=== PATIENT | female | born 1985 | race Caucasian/White ===

== ENCOUNTER 2017-03-23 09:15 | Day surgery (SDC) | payer OTHER ==
[2017-03-21 16:50] VITALS: BMI 22.2
[~2017-03-23 09:15] MED LIST: LACTATED RINGERS 1,000 ML IV SCH
[2017-03-23 09:46] VITALS: TEMP 98.4
[2017-03-23] MEDS ORDERED: PROPOFOL 10 MG/ML 20 ML VIAL IV ONE (10:07)
[2017-03-23 10:09] LABS: Glucose,Whole Blood 92 mg/dL (75-99)
[2017-03-23 10:40] VITALS: RESP 16
--- NOTE | 2017-03-23 10:53 | P.PCN ---
Date of Procedure: 03/23/17 Preoperative Diagnosis: Postoperative Diagnosis: Procedure(s) Performed: Procedures: 1. Esophagogastroduodenoscopy and biopsy. 2. Colonoscopy and biopsy. Preoperative diagnosis: Epigastric pain and change in bowel habits. Postoperative diagnosis: 1. Small sliding hiatal hernia with no obvious esophagitis or complaints reflux disease. 2. Mild antral gastritis. 3. Normal colon and terminal ileum. 4. Multiple biopsies obtained from the duodenum, antrum, esophagus, terminal ileum and right colon. Preparation: HalfLytely prep. Sedation: Was provided by anesthesia. Brief clinical history: The patient is a 32-year-old female who was evaluated in the office for epigastric pain and diarrhea that she has been experiencing since May of last year. She had slight improvement on a gluten-free diet which she followed for 2 months. She has lost 30 pounds over 6 months period. This evaluation is to rule out inflammatory bowel disease, celiac disease or other pathology. Procedure: With the patient on her left lateral decubitus position and after informed consent and adequate sedation, I passed the Olympus-GIF 160 video upper endoscope through the cricopharyngeus down the esophagus. GE junction was around 38 cm from the incisors and there was a small sliding hiatal hernia. The esophagus did not show any erosions, ulcers, strictures or Skelton's esophagus. The endoscope was then passed into the stomach which was insufflated with air and inspected in the retroflex view in the cardia. There was some mottling and erythema in the antrum but no ulcers or erosions. Pyloric channel, duodenal bulb, post bulbar area and descending duodenum appeared within normal limits. I obtained biopsies from the duodenum, antrum and esophagus then the endoscope was withdrawn and I proceeded with the colonoscopy. Perianal area did not show any fissures or fistulas. There were no masses felt on digital rectal examination. The Olympus CFQ 160L video colonoscope was then inserted in the rectum in the usual fashion and advanced to the cecum. I intubated the ileocecal valve and examined the terminal ileum as well. Terminal ileum and colon appeared healthy with no edema, erythema, friability, ulceration, exudation or spontaneous bleeding. I obtained biopsies from the terminal ileum and right colon then the endoscope was retroflexed in the rectum before it was withdrawn. The patient tolerated the procedure well. Plan: The patient was reassured. She will follow-up in the office as planned. We will await biopsy results and keep you updated on her progress. Implants: Indications for Procedure: Operative Findings: Description of Procedure:
[2017-03-23 11:11] VITALS: BP 102/72; PULSE 75
== END 2017-03-23 11:30 | disposition home or self-care (01) ==
LOC: ORWHC2ENDO 09:15
DX: K29.50 Unspecified chronic gastritis without bleeding (principal); K20.9 Esophagitis, unspecified; K44.9 Diaphragmatic hernia without obstruction or gangrene; R19.4 Change in bowel habit; R19.7 Diarrhea, unspecified; R63.4 Abnormal weight loss; I25.10 Atherosclerotic heart disease of native coronary artery without angina pectoris; F43.10 Post-traumatic stress disorder, unspecified; F41.8 Other specified anxiety disorders; J44.9 Chronic obstructive pulmonary disease, unspecified; F17.200 Nicotine dependence, unspecified, uncomplicated; Z79.899 Other long term (current) drug therapy
CPT/HCPCS: 88305; 88342; 45380; 43239; J2704; 45378

== ENCOUNTER → 2017-04-20 | Outpatient (CLI) | payer OTHER ==
--- NOTE | 2017-04-20 11:52 | US ---
EXAMINATION TYPE: US abdomen complete DATE OF EXAM: 04/20/2017 COMPARISON: NONE CLINICAL HISTORY: R10.9 Abd pain. EXAM MEASUREMENTS: Liver Length: 13.8 cm Gallbladder Wall: Surgically absent cm CBD: 0.31 cm Spleen: 11.3 cm Right Kidney: 8.7 x 3.9 x 4.6 cm Left Kidney: 11.0 x 4.8 x 4.8 cm Pancreas: echogenic Liver: wnl Gallbladder: Surgically absent CBD: wnl Spleen: wnl Right Kidney: No hydronephrosis or masses seen Left Kidney: No hydronephrosis or masses seen Upper IVC: wnl Abd Aorta: wnl Pancreas appears echogenic The liver is homogenous. The intrahepatic portion of the IVC and proximal abdominal aorta are within normal limits. The gallbladder is surgically absent. Common bile duct is unremarkable. The visualiz ed portions of the pancreas are homogenous. The spleen is unremarkable. Kidneys are symmetric and f ree of hydronephrosis. No renal lesions are seen. IMPRESSION: No significant abnormality identified.
== END | disposition home or self-care (01) ==
LOC: RADUSWWP 11:08
DX: R10.9 Unspecified abdominal pain (principal)
CPT/HCPCS: 76700

== ENCOUNTER 2017-06-05 21:37 | Emergency (ER) | payer OTHER ==
[2017-06-05] MEDS ORDERED: SODIUM CHLORIDE 0.9% 1,000 ML IV ONE (22:54)
[2017-06-05 23:43] LABS: Basophils % (A) 0 %; CHCM 34.8; Eosinophils # (A) 0.3 k/uL (0-0.7); Eosinophils % (A) 1 %; HCT 42.9 % (34.0-46.0); HGB 14.9 gm/dL (11.4-16.0); Luc # (Auto) 0.07; Luc % (Auto) 0; Lymphocytes # (A) 1.2 k/uL (1.0-4.8); Lymphocytes % (A) 5 %; MCHC 34.6 g/dL (31.0-37.0); MCV 89.5 fL (80.0-100.0); Mean Platelet Volume 6.7; Monocytes # (A) 0.4 k/uL (0-1.0); Monocytes % (A) 2 %; Neutrophils # (A) 21.4 k/uL (1.3-7.7); Neutrophils % (A) 91 %; RDW 12.3 % (11.5-15.5); WBC 23.5 k/uL (3.8-10.6); WBC (Perox) 24.19
[2017-06-05 23:45] LABS: Appearance,Urine Clear (Clear); Bilirubin,Urine Negative (Negative); Glucose,Urine (UA) Negative (Negative); Ketones,Urine Negative (Negative); Leukocyte Esterase,Urine Negative (Negative); Nitrite,Urine Negative (Negative); Protein,Urine Trace (Negative); Specific Gravity,Urine 1.015 (1.001-1.035); UA Billing (MACRO vs. MICRO) CHEM; Urobilinogen,Urine <2.0 mg/dL (<2.0)
[2017-06-05 23:52] LABS: Acetaminophen <10.0 ug/mL; Alcohol <10 mg/dL; Salicylate <1.0 mg/dL
[2017-06-06 00:57] LABS: ALT 43 U/L (9-52); AST 32 U/L (14-36); Alkaline Phosphatase 79 U/L (38-126); Anion Gap 14 mmol/L; Blood Urea Nitrogen 9 mg/dL (7-17); Calcium 9.6 mg/dL (8.4-10.2); Carbon Dioxide 23 mmol/L (22-30); Chloride 104 mmol/L (98-107); Glucose 95 mg/dL (74-99); Non-African American GFR(MDRD) >60 (>60 ml/min/1.73 sqM); Potassium 3.5 mmol/L (3.5-5.1); Sodium 141 mmol/L (137-145); Total Bilirubin 0.5 mg/dL (0.2-1.3); Total Protein 7.2 g/dL (6.3-8.2)
--- NOTE | 2017-06-06 01:25 | XR ---
EXAM: XR Chest, 2 Views CLINICAL HISTORY: Reason: Pain TECHNIQUE: Frontal and lateral views of the chest. COMPARISON: 03/16/16 FINDINGS: Lungs: Unremarkable. No consolidation. Pleural space: Unremarkable. No pneumothorax. Heart: Unremarkable. No cardiomegaly. Mediastinum: Unremarkable. Bones/joints: Unremarkable. IMPRESSION: Normal chest x-rays.
--- NOTE | 2017-06-06 01:51 | ED ---
General Adult HPI - General Source: patient, family, RN notes reviewed, old records reviewed Mode of arrival: ambulatory Limitations: no limitations <Alberto George - Last Filed: 06/06/17 05:00> <Scooby Ceja - Last Filed: 06/06/17 17:27> - General Chief complaint: Psychiatric Symptoms Stated complaint: Mental Health Time Seen by Provider: 06/05/17 22:53 - History of Present Illness Initial comments: 32-year-old female with history of depression presents with a one-month history of worsening symptoms of depression. She recently broke up with her boyfriend. She's had suicidal thoughts and plans over the last several days. She even admits to taking too much of her prescription medication several days ago. She denies taking any medication today. Denies alcohol. Denies Tylenol or aspirin ingestion today. Patient has had multiple admissions for psychiatric treatment and evaluation in the past. (Alberto George) - Related Data Home Medications Medication Instructions Recorded Confirmed Cyclobenzaprine [Flexeril] 10 mg PO TID PRN 07/13/15 06/06/17 Montelukast [Singulair] 10 mg PO HS PRN 10/28/15 06/06/17 LORazepam [Ativan] 0.5 mg PO TID PRN 12/24/15 06/06/17 lamoTRIgine [LaMICtal] 200 mg PO QAM 03/16/16 06/06/17 Hydrocodone/Acetaminophen [[place] 1 tab PO TID PRN 04/23/16 06/06/17 7.5-325] Topiramate [Topamax] 50 mg PO QAM 04/23/16 06/06/17 Albuterol Nebulized (Conc) 2.5 mg INHALATION DAILY PRN 03/21/17 06/06/17 [Ventolin Nebulized (Conc)] Escitalopram [Lexapro] 20 mg PO QAM 03/21/17 06/06/17 Multivit with Calcium,Iron,Min 1 tab PO DAILY 03/21/17 06/06/17 [Women's Multivitamin] Zinc 50 mg PO DAILY 03/21/17 06/06/17 Cholecalciferol (Vitamin D3) 2,000 unit PO DAILY 03/23/17 06/06/17 [Vitamin D3] Dicyclomine HCl 20 mg PO TID PRN 06/06/17 06/06/17 Zolpidem [Ambien] 10 mg PO HS PRN 06/06/17 06/06/17 Previous Rx's Medication Instructions Recorded Albuterol Inhaler [Ventolin Hfa 1 - 2 puff INHALATION Q6HR PRN #1 03/16/16 Inhaler] inhaler Ipratropium/Albuterol Sulfate 2 puff INHALATION QID PRN #1 03/16/16 [Combivent Respimat Inhaler] inhaler Allergies Allergy/AdvReac Type Severity Reaction Status Date / Time No Known Allergies Allergy Verified 06/06/17 08:02 Review of Systems ROS Other: All systems not noted in ROS Statement are negative. <Alberto George - Last Filed: 06/06/17 05:00> ROS Other: All systems not noted in ROS Statement are negative. <Scooby Ceja - Last Filed: 06/06/17 17:27> ROS Statement: Those systems with pertinent positive or pertinent negative responses have been documented in the HPI. 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 Past Psychological History: Anxiety, Depression, Panic Disorder, PTSD Smoking Status: Current every day smoker - Past Family History Mother Family Medical History: Diabetes Mellitus, Hypertension Father Additional Family Medical History / Comment(s): had physical and mental disabilities at age 46. Father Brother(s) Family Medical History: Diabetes Mellitus, Hypertension <Alberto George - Last Filed: 06/06/17 05:00> General Exam Limitations: no limitations General appearance: alert, in no apparent distress Head exam: Present: atraumatic, normocephalic Eye exam: Present: normal appearance, PERRL ENT exam: Present: normal exam Neck exam: Present: normal inspection. Absent: tenderness, meningismus Respiratory exam: Present: normal lung sounds bilaterally. Absent: respiratory distress, wheezes, rales Cardiovascular Exam: Present: regular rate. Absent: normal rhythm GI/Abdominal exam: Present: soft. Absent: distended, tenderness, guarding Extremities exam: Present: normal inspection, full ROM. Absent: tenderness Back exam: Present: normal inspection, full ROM. Absent: CVA tenderness (R), CVA tenderness (L) Neurological exam: Present: alert, oriented X3, CN II-XII intact. Absent: motor sensory deficit Psychiatric exam: Present: depressed. Absent: agitated Skin exam: Present: warm, dry, intact. Absent: rash, cyanosis, diaphoretic <Alberto George - Last Filed: 06/06/17 05:00> EKG Findings - EKG Comments: EKG Findings:: EKG shows sinus tachycardia with ventricular rate of 12, normal MT interval at 152, QRS duration 86, QTC 450, no signs of ischemia <Alberto George - Last Filed: 06/06/17 05:00> Medical Decision Making - Lab Data Result diagrams: 06/05/17 23:32 06/05/17 23:52 <Alberto George - Last Filed: 06/06/17 05:00> - Lab Data Result diagrams: 06/05/17 23:32 06/05/17 23:52 <Scooby Ceja - Last Filed: 06/06/17 17:27> - Medical Decision Making 32-year-old female presenting with suicidal ideation and attempt. Patient attempted suicide several days ago by taking too much of her prescription medications. She denies any ingestion today. Laboratory studies were obtained. CMP is unremarkable. CBC does show elevated white blood cell count, urinalysis is negative for signs of infection, Tylenol salicylate levels are nondetectable, urine drug screen does show marijuana, benzodiazepines, tricyclics and opiates. White blood cell count is 23,000, there is no obvious source of infection on physical exam. Chest x-ray is obtained which is negative for pneumonia. Patient's white blood cell count is likely reactive. Will monitor for fever and signs of infection. EKG obtained given the history of ingestion. There is no acute changes noted. Patient is currently medically cleared awaiting EPS evaluation. 06/06 [id number]: Patient was evaluated by EPS, does require inpatient psychiatric treatment for depression and suicidal ideation. She is currently awaiting transfer to [facility] or will be admitted to this hospital when a bed is available. (Alberto George) Patient was reevaluated by EPS and [facility]. They're going to set the patient up with a mobile crisis unit and follow-up with her daily for the next few days. They're going to establish follow-up for her through [facility] as well. The patient is agreeable to this plan. Patient will be discharged with the mobile crisis unit. (Scooby Ceja) - Lab Data Lab Results 06/05/17 06/05/17 06/05/17 Range/Units 23:32 23:32 23:32 WBC 23.5 H (3.8-10.6) k/uL RBC 4.80 (3.80-5.40) m/uL Hgb 14.9 (11.4-16.0) gm/dL Hct 42.9 (34.0-46.0) % MCV 89.5 (80.0-100.0) fL MCH 31.0 (25.0-35.0) pg MCHC 34.6 (31.0-37.0) g/dL RDW 12.3 (11.5-15.5) % Plt Count 254 (150-450) k/uL Neutrophils % 91 % Lymphocytes % 5 % Monocytes % 2 % Eosinophils % 1 % Basophils % 0 % Neutrophils # 21.4 H (1.3-7.7) k/uL Lymphocytes # 1.2 (1.0-4.8) k/uL Monocytes # 0.4 (0-1.0) k/uL Eosinophils # 0.3 (0-0.7) k/uL Basophils # 0.0 (0-0.2) k/uL Sodium (137-145) mmol/L Potassium (3.5-5.1) mmol/L Chloride (98-107) mmol/L Carbon Dioxide (22-30) mmol/L Anion Gap mmol/L BUN (7-17) mg/dL Creatinine (0.52-1.04) mg/dL Est GFR (MDRD) Af Amer (>60 ml/min/1.73 sqM) Est GFR (MDRD) Non-Af (>60 ml/min/1.73 sqM) Glucose (74-99) mg/dL Calcium (8.4-10.2) mg/dL Total Bilirubin (0.2-1.3) mg/dL AST (14-36) U/L ALT (9-52) U/L Alkaline Phosphatase (38-126) U/L Total Protein (6.3-8.2) g/dL Albumin (3.5-5.0) g/dL Urine Color Yellow Urine Appearance Clear (Clear) Urine pH 6.0 (5.0-8.0) Ur Specific [place] 1.015 (1.001-1.035) Urine Protein Trace H (Negative) Urine Glucose (UA) Negative (Negative) Urine Ketones Negative (Negative) Urine Blood Negative (Negative) Urine Nitrite Negative (Negative) Urine Bilirubin Negative (Negative) Urine Urobilinogen <2.0 (<2.0) mg/dL Ur Leukocyte Esterase Negative (Negative) Urine HCG, Qual (Not Detectd) Salicylates <1.0 mg/dL Urine Opiates Screen Detected H (NotDetected) Ur Oxycodone Screen Not Detected (NotDetected) Urine Methadone Screen Not Detected (NotDetected) Ur Propoxyphene Screen Not Detected (NotDetected) Acetaminophen <10.0 ug/mL Ur Barbiturates Screen Not Detected (NotDetected) U Tricyclic Antidepress Detected H (NotDetected) Ur Phencyclidine Scrn Not Detected (NotDetected) Ur Amphetamines Screen Not Detected (NotDetected) U Methamphetamines Scrn Not Detected (NotDetected) U Benzodiazepines Scrn Detected H (NotDetected) Urine Cocaine Screen Not Detected (NotDetected) U Marijuana (THC) Screen Detected H (NotDetected) Serum Alcohol <10 mg/dL 06/05/17 06/05/17 Range/Units 23:32 23:52 WBC (3.8-10.6) k/uL RBC (3.80-5.40) m/uL Hgb (11.4-16.0) gm/dL Hct (34.0-46.0) % MCV (80.0-100.0) fL MCH (25.0-35.0) pg MCHC (31.0-37.0) g/dL RDW (11.5-15.5) % Plt Count (150-450) k/uL Neutrophils % % Lymphocytes % % Monocytes % % Eosinophils % % Basophils % % Neutrophils # (1.3-7.7) k/uL Lymphocytes # (1.0-4.8) k/uL Monocytes # (0-1.0) k/uL Eosinophils # (0-0.7) k/uL Basophils # (0-0.2) k/uL Sodium 141 (137-145) mmol/L Potassium 3.5 (3.5-5.1) mmol/L Chloride 104 (98-107) mmol/L Carbon Dioxide 23 (22-30) mmol/L Anion Gap 14 mmol/L BUN 9 (7-17) mg/dL Creatinine 0.80 (0.52-1.04) mg/dL Est GFR (MDRD) Af Amer >60 (>60 ml/min/1.73 sqM) Est GFR (MDRD) Non-Af >60 (>60 ml/min/1.73 sqM) Glucose 95 (74-99) mg/dL Calcium 9.6 (8.4-10.2) mg/dL Total Bilirubin 0.5 (0.2-1.3) mg/dL AST 32 (14-36) U/L ALT 43 (9-52) U/L Alkaline Phosphatase 79 (38-126) U/L Total Protein 7.2 (6.3-8.2) g/dL Albumin 4.6 (3.5-5.0) g/dL Urine Color Urine Appearance (Clear) Urine pH (5.0-8.0) Ur Specific [place] (1.001-1.035) Urine Protein (Negative) Urine Glucose (UA) (Negative) Urine Ketones (Negative) Urine Blood (Negative) Urine Nitrite (Negative) Urine Bilirubin (Negative) Urine Urobilinogen (<2.0) mg/dL Ur Leukocyte Esterase (Negative) Urine HCG, Qual Not Detected (Not Detectd) Salicylates mg/dL Urine Opiates Screen (NotDetected) Ur Oxycodone Screen (NotDetected) Urine Methadone Screen (NotDetected) Ur Propoxyphene Screen (NotDetected) Acetaminophen ug/mL Ur Barbiturates Screen (NotDetected) U Tricyclic Antidepress (NotDetected) Ur Phencyclidine Scrn (NotDetected) Ur Amphetamines Screen (NotDetected) U Methamphetamines Scrn (NotDetected) U Benzodiazepines Scrn (NotDetected) Urine Cocaine Screen (NotDetected) U Marijuana (THC) Screen (NotDetected) Serum Alcohol mg/dL Disposition <Alberto George - Last Filed: 06/06/17 05:00> <Scooby Ceja - Last Filed: 06/06/17 17:27> Clinical Impression: Depression Disposition: HOME SELF-CARE Condition: Serious Referrals: Colton Yeung MD [Primary Care Provider] - 1-2 days
[2017-06-06] MEDS ORDERED: NICOTINE 21MG/24HR PATCH TRANSDERM STA (11:11)
[2017-06-06] MEDS ORDERED: lamoTRIgine 100 MG TAB PO STA (12:06)
[2017-06-06] MEDS ORDERED: DICYCLOMINE 20 MG TAB PO STA (12:07)
[2017-06-06] MEDS ORDERED: ESCITALOPRAM 20 MG TAB PO STA (12:08)
[2017-06-06] MEDS ORDERED: TOPIRAMATE 25 MG TAB PO STA (12:09)
[2017-06-06 17:33] VITALS: BP 106/56; PULSE 80; RESP 14; TEMP 100
== END 2017-06-06 17:42 | disposition home or self-care (01) ==
LOC: EC 21:37
DX: F32.9 Major depressive disorder, single episode, unspecified (principal); T14.91 Suicide attempt; I25.10 Atherosclerotic heart disease of native coronary artery without angina pectoris; J44.9 Chronic obstructive pulmonary disease, unspecified; F41.9 Anxiety disorder, unspecified; F41.0 Panic disorder [episodic paroxysmal anxiety]; F43.10 Post-traumatic stress disorder, unspecified; F17.200 Nicotine dependence, unspecified, uncomplicated; Z79.899 Other long term (current) drug therapy
CPT/HCPCS: 82075; 36415; 93005; 80053; 85025; 81003; 81025; 80306; 83520 ×2; 80320; 71020; 99284; 96360; 96361 ×5; S4990

== ENCOUNTER → 2017-07-05 | Outpatient (CLI) | payer OTHER ==
--- NOTE | 2017-07-06 07:54 | MM ---
Reason for exam: clinical finding. Indicated problem(s): lump or thickening in both breasts. Physical Findings: Nurse did not find any significant physical abnormalities on exam. MG Diagnostic Mammo w CAD GIULIANA Bilateral CC and MLO view(s) were taken. The breast tissue is heterogeneously dense. This may lower the sensitivity of mammography. There is no discrete abnormality. These results were verbally communicated with the patient and result sheet given to the patient on 07/05/17. ASSESSMENT: Negative, BI-RAD 1 RECOMMENDATION: Routine screening mammogram of both breasts at age 42. Manage on a clinical basis with regard to bilateral diffuse palpables, prior negative ultrasound.
== END | disposition home or self-care (01) ==
LOC: RADMAMWWP 15:16
PROVIDERS: ATTEND Family Medicine
DX: N63 Unspecified lump in breast (principal)

== ENCOUNTER → 2017-07-05 | Outpatient (CLI) | payer OTHER ==
[2017-07-05 16:47] LABS: Basophils % (A) 0 %; CH 30.7; CHCM 34.1; Eosinophils # (A) 0.1 k/uL (0-0.7); Eosinophils % (A) 1 %; HCT 40.4 % (34.0-46.0); HGB 13.8 gm/dL (11.4-16.0); Luc # (Auto) 0.07; Luc % (Auto) 1; Lymphocytes # (A) 1.7 k/uL (1.0-4.8); Lymphocytes % (A) 23 %; MCHC 34.2 g/dL (31.0-37.0); MCV 90.5 fL (80.0-100.0); Mean Platelet Volume 6.8; Monocytes # (A) 0.3 k/uL (0-1.0); Monocytes % (A) 4 %; Neutrophils # (A) 5.1 k/uL (1.3-7.7); Neutrophils % (A) 71 %; RBC 4.47 m/uL (3.80-5.40); RDW 12.4 % (11.5-15.5); WBC 7.2 k/uL (3.8-10.6); WBC (Perox) 7.11
[2017-07-05 16:52] LABS: ALT 40 U/L (9-52); AST 17 U/L (14-36); Alkaline Phosphatase 79 U/L (38-126); Anion Gap 10 mmol/L; Blood Urea Nitrogen 8 mg/dL (7-17); Calcium 9.8 mg/dL (8.4-10.2); Carbon Dioxide 23 mmol/L (22-30); Chloride 108 mmol/L (98-107); Glucose 89 mg/dL (74-99); Non-African American GFR(MDRD) >60 (>60 ml/min/1.73 sqM); Potassium 4.3 mmol/L (3.5-5.1); Sodium 141 mmol/L (137-145); Total Bilirubin 0.3 mg/dL (0.2-1.3); Total Protein 7.1 g/dL (6.3-8.2)
[2017-07-05 16:55] LABS: Rheumatoid Factor, Qnt <9 IU/mL (<12)
[2017-07-05 17:39] LABS: Vitamin B12 879 pg/mL (239-931)
[2017-07-06 01:24] LABS: ANA w/Reflex to Titer NEGATIVE (NEGATIVE)
== END | disposition home or self-care (01) ==
LOC: LABWHC1 16:21
PROVIDERS: ATTEND Nurse Practitioner Acute Care
DX: E55.9 Vitamin D deficiency, unspecified (principal); M25.50 Pain in unspecified joint
CPT/HCPCS: 36415; 80053; 82306; 82607; 84439; 84443; 84481; 85025; 86038; 86431

== ENCOUNTER 2017-08-26 14:29 | Emergency (ER) | payer OTHER ==
[2017-08-26] MEDS ORDERED: SODIUM CHLORIDE 0.9% 1,000 ML IV STA (15:12)
[2017-08-26] MEDS ORDERED: MORPHINE SULFATE 10 MG/ML SYRINGE IV STA (15:12)
[2017-08-26] MEDS ORDERED: KETOROLAC 30 MG/ML 1 ML VIAL IVP STA (15:13)
[2017-08-26] MEDS ORDERED: DEXAMETHASONE SOD PHOSPHATE 10 MG/ML 1 ML VIAL IM STA (15:13)
[2017-08-26 15:32] LABS: Basophils % (A) 0 %; CH 30.6; CHCM 32.9; Eosinophils # (A) 0.1 k/uL (0-0.7); Eosinophils % (A) 1 %; HCT 40.1 % (34.0-46.0); HDW 2.34; HGB 13.1 gm/dL (11.4-16.0); Luc # (Auto) 0.05; Luc % (Auto) 1; Lymphocytes # (A) 1.4 k/uL (1.0-4.8); Lymphocytes % (A) 16 %; MCH 30.6 pg (25.0-35.0); MCHC 32.7 g/dL (31.0-37.0); MCV 93.6 fL (80.0-100.0); Mean Platelet Volume 6.9; Monocytes # (A) 0.3 k/uL (0-1.0); Monocytes % (A) 4 %; Neutrophils # (A) 6.5 k/uL (1.3-7.7); Neutrophils % (A) 78 %; RBC 4.28 m/uL (3.80-5.40); RDW 13.6 % (11.5-15.5); WBC 8.3 k/uL (3.8-10.6); WBC (Perox) 8.44
[2017-08-26 15:43] LABS: ALT 30 U/L (9-52); AST 14 U/L (14-36); Alkaline Phosphatase 65 U/L (38-126); Anion Gap 6 mmol/L; Blood Urea Nitrogen 7 mg/dL (7-17); Calcium 9.1 mg/dL (8.4-10.2); Carbon Dioxide 23 mmol/L (22-30); Chloride 110 mmol/L (98-107); Glucose 89 mg/dL (74-99); Magnesium 1.8 mg/dL (1.6-2.3); Non-African American GFR(MDRD) >60 (>60 ml/min/1.73 sqM); Phosphorus 2.5 mg/dL (2.5-4.5); Potassium 4.2 mmol/L (3.5-5.1); Sodium 139 mmol/L (137-145); Total Bilirubin 0.2 mg/dL (0.2-1.3); Total Protein 6.5 g/dL (6.3-8.2)
--- NOTE | 2017-08-26 15:47 | ED ---
General Adult HPI - General Chief complaint: Back Pain/Injury Stated complaint: Back Pain Time Seen by Provider: 08/26/17 14:40 Source: patient, EMS, RN notes reviewed, old records reviewed Mode of arrival: EMS Limitations: no limitations - History of Present Illness Initial comments: This is a 32-year-old female to the ER for evaluation today. This patient presents today for evaluation regarding back pain. Patient has history of chronic back pain slipped disc past history of ALLERGY including MRI x-ray. No significant interval neurological damage per patient although she does have a history of some sciatic nerve pain down her left and right leg. Sometimes right leg is little bit worse. Patient states she is with her kids yesterday bent down to pick something up and felt twists and a pop in her back and hasn't been able to walk since. No loss of bowel or bladder. She also complains of mild abdominal pain and mild pain wrapping around her back. - Related Data Home Medications Medication Instructions Recorded Confirmed Cyclobenzaprine [Flexeril] 10 mg PO TID PRN 07/13/15 08/26/17 Montelukast [Singulair] 10 mg PO HS PRN 10/28/15 08/26/17 lamoTRIgine [LaMICtal] 200 mg PO QAM 03/16/16 08/26/17 Hydrocodone/Acetaminophen [[place] 1 tab PO TID PRN 04/23/16 08/26/17 7.5-325] Albuterol Nebulized (Conc) 2.5 mg INHALATION RT-DAILY PRN 03/21/17 08/26/17 [Ventolin Nebulized (Conc)] Escitalopram [Lexapro] 20 mg PO QAM 03/21/17 08/26/17 Multivit with Calcium,Iron,Min 1 tab PO DAILY 03/21/17 08/26/17 [Women's Multivitamin] Zolpidem [Ambien] 10 mg PO HS PRN 06/06/17 08/26/17 Albuterol Inhaler [Ventolin Hfa 1 - 2 puff INHALATION RT-Q6H PRN 08/26/17 Inhaler] Ibuprofen [Motrin] 800 mg PO BID PRN 08/26/17 08/26/17 Topiramate [Topamax] 25 mg PO DAILY 08/26/17 08/26/17 Allergies Allergy/AdvReac Type Severity Reaction Status Date / Time No Known Allergies Allergy Verified 08/26/17 14:50 Review of Systems ROS Statement: Those systems with pertinent positive or pertinent negative responses have been documented in the HPI. ROS Other: All systems not noted in ROS Statement are negative. 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 Past Psychological History: Anxiety, Depression, Panic Disorder, PTSD Smoking Status: Current every day smoker Past Alcohol Use History: Occasional Past Drug Use History: Marijuana - Past Family History Mother Family Medical History: Diabetes Mellitus, Hypertension Father Additional Family Medical History / Comment(s): had physical and mental disabilities at age 46. Father Brother(s) Family Medical History: Diabetes Mellitus, Hypertension General Exam Limitations: no limitations Course Vital Signs 08/26/17 14:36 Temperature 98.4 F Pulse Rate 82 Respiratory 18 Rate Blood Pressure 114/63 O2 Sat by Pulse 100 Oximetry - Reevaluation(s) Reevaluation #1: 08/26/17 15:46 patient now has back pain controlled and able to ambulate without difficulty Medical Decision Making - Medical Decision Making 32 female here with acute on chronic back pain. This patient time patient has had back pain resolution. Patient can be discharged home - Lab Data Result diagrams: 08/26/17 15:20 08/26/17 15:20 Lab Results 08/26/17 08/26/17 Range/Units 15:20 15:20 WBC 8.3 (3.8-10.6) k/uL RBC 4.28 (3.80-5.40) m/uL Hgb 13.1 (11.4-16.0) gm/dL Hct 40.1 (34.0-46.0) % MCV 93.6 (80.0-100.0) fL MCH 30.6 (25.0-35.0) pg MCHC 32.7 (31.0-37.0) g/dL RDW 13.6 (11.5-15.5) % Plt Count 235 (150-450) k/uL Neutrophils % 78 % Lymphocytes % 16 % Monocytes % 4 % Eosinophils % 1 % Basophils % 0 % Neutrophils # 6.5 (1.3-7.7) k/uL Lymphocytes # 1.4 (1.0-4.8) k/uL Monocytes # 0.3 (0-1.0) k/uL Eosinophils # 0.1 (0-0.7) k/uL Basophils # 0.0 (0-0.2) k/uL Sodium 139 (137-145) mmol/L Potassium 4.2 (3.5-5.1) mmol/L Chloride 110 H (98-107) mmol/L Carbon Dioxide 23 (22-30) mmol/L Anion Gap 6 mmol/L BUN 7 (7-17) mg/dL Creatinine 0.64 (0.52-1.04) mg/dL Est GFR (MDRD) Af Amer >60 (>60 ml/min/1.73 sqM) Est GFR (MDRD) Non-Af >60 (>60 ml/min/1.73 sqM) Glucose 89 (74-99) mg/dL Calcium 9.1 (8.4-10.2) mg/dL Phosphorus 2.5 (2.5-4.5) mg/dL Magnesium 1.8 (1.6-2.3) mg/dL Total Bilirubin 0.2 (0.2-1.3) mg/dL AST 14 (14-36) U/L ALT 30 (9-52) U/L Alkaline Phosphatase 65 (38-126) U/L Total Protein 6.5 (6.3-8.2) g/dL Albumin 3.8 (3.5-5.0) g/dL - Radiology Data Radiology results: report reviewed (X-ray lumbosacral is negative), image reviewed Disposition Clinical Impression: Mid back pain, Sciatica, Strain of lumbar region Disposition: HOME SELF-CARE Condition: Good Instructions: Chronic Back Pain (ED), Acute Low Back Pain (ED) Referrals: Colton Yeung MD [Primary Care Provider] - 1-2 days
--- NOTE | 2017-08-26 16:12 | XR ---
EXAMINATION TYPE: XR lumbosacral spine min 4V DATE OF EXAM: 08/26/2017 COMPARISON: NONE HISTORY: Back pain TECHNIQUE: 5 views FINDINGS: There is a slight levoscoliosis. This spaces are fairly well-maintained. There is no compre ssion fracture. Posterior elements are intact. Sacroiliac joints appear normal. IMPRESSION: Slight levoscoliosis. Otherwise negative exam.
[2017-08-26] MEDS ORDERED: diphenhydrAMINE 50 MG/ML 1 ML VIAL IVP STA (16:28)
[2017-08-26] MEDS ORDERED: HYDROmorphone 1 MG/ML 1 ML SYRINGE IVP STA (16:28)
[2017-08-26 16:32] LABS: Appearance,Urine Clear (Clear); Bilirubin,Urine Negative (Negative); Glucose,Urine (UA) Negative (Negative); Ketones,Urine Negative (Negative); Leukocyte Esterase,Urine Negative (Negative); Nitrite,Urine Negative (Negative); Protein,Urine Negative (Negative); Specific Gravity,Urine 1.002 (1.001-1.035); UA Billing (MACRO vs. MICRO) CHEM; Urobilinogen,Urine <2.0 mg/dL (<2.0)
[2017-08-26 16:45] VITALS: BP 104/56; PULSE 83; RESP 17; TEMP 97.9
--- NOTE | 2017-08-31 04:53 | CDI ---
Dear Roc Boswell DO: Please do addendum Physical Examination. Thank you, Annie Venegas, Motor Assembler. If you have any questions, please contact Armature Inspector at [phone]. [facility]
== END 2017-08-26 16:58 | disposition home or self-care (01) ==
LOC: EC 14:29
DX: O9A.219 Injury, poisoning and certain other consequences of external causes complicating pregnancy, unspecified trimester (principal); S39.012A Strain of muscle, fascia and tendon of lower back, initial encounter; O99.89 Other specified diseases and conditions complicating pregnancy, childbirth and the puerperium; M54.32 Sciatica, left side; M54.31 Sciatica, right side; R10.9 Unspecified abdominal pain; O99.340 Other mental disorders complicating pregnancy, unspecified trimester; F32.9 Major depressive disorder, single episode, unspecified; F41.9 Anxiety disorder, unspecified; O99.330 Smoking (tobacco) complicating pregnancy, unspecified trimester; F17.200 Nicotine dependence, unspecified, uncomplicated; Z79.899 Other long term (current) drug therapy; Z86.69 Personal history of other diseases of the nervous system and sense organs; Z90.49 Acquired absence of other specified parts of digestive tract; Z3A.00 Weeks of gestation of pregnancy not specified; X50.1XXA Overexertion from prolonged static or awkward postures, initial encounter; Y93.89 Activity, other specified
CPT/HCPCS: 99284; 96374; 96375 ×3; 96361; 96372; 36415; 80053; 83735; 84100; 85025; 81003; 87086; 72110; J1200; J1100; J2270; J1885; J1170

== ENCOUNTER → 2017-10-26 | Outpatient (CLI) | payer OTHER ==
--- NOTE | 2017-10-27 07:10 | US ---
EXAMINATION TYPE: US pelvic complete DATE OF EXAM: 10/26/2017 COMPARISON: NONE CLINICAL HISTORY: R10.2 Pelvic pain. Partial hysterectomy 2015 LLQ pain TECHNIQUE: Transabdominal (TA) EXAM MEASUREMENTS: Uterus: Surgically absent cm Endometrial Stripe: Surgically absent cm Right Ovary: 2.5 x 1.6 x 2.5 cm Left Ovary: 2.8 x 2.1 x 2.6 cm 1. Uterus: Surgically absent 2. Endometrium: Surgically absent 3. Right Ovary: Follicles seen largest measuring 1.4 x 1.2 x 1.4cm 4. Left Ovary: Follicles seen. The previously seen left ovarian likely complex cyst is included in t he interim. 5. Bilateral Adnexa: wnl 6. Posterior cul-de-sac: wnl IMPRESSION: Surgical absence of the uterus with unremarkable ovaries. The previously seen complex left ovarian pr obable hemorrhagic cyst has involuted in the interim. Ovaries are unremarkable on today's examination .
== END | disposition home or self-care (01) ==
LOC: RADUSMAIN 17:48
PROVIDERS: ATTEND Family Medicine
DX: R10.2 Pelvic and perineal pain (principal); Z90.710 Acquired absence of both cervix and uterus
CPT/HCPCS: 76856

== ENCOUNTER 2018-03-14 20:26 | Emergency (ER) | payer OTHER ==
[2018-03-14] MEDS ORDERED: SODIUM CHLORIDE 0.9% 1,000 ML IV STA (22:22)
[2018-03-14 22:56] LABS: Appearance,Urine Clear (Clear); Bilirubin,Urine Negative (Negative); Blood,Urine Negative (Negative); Color,Urine Yellow; Glucose,Urine (UA) Negative (Negative); Ketones,Urine Negative (Negative); Leukocyte Esterase,Urine Negative (Negative); Nitrite,Urine Negative (Negative); PH, Urine 7.5 (5.0-8.0); Protein,Urine Negative (Negative); Urobilinogen,Urine <2.0 mg/dL (<2.0)
[2018-03-14 22:58] LABS: Basophils % (A) 0 %; Eosinophils # (A) 0.2 k/uL (0-0.7); Eosinophils % (A) 2 %; HCT 41.3 % (34.0-46.0); HGB 14.2 gm/dL (11.4-16.0); Lymphocytes # (A) 2.8 k/uL (1.0-4.8); Lymphocytes % (A) 31 %; MCHC 34.4 g/dL (31.0-37.0); MCV 90.3 fL (80.0-100.0); Mean Platelet Volume 6.7; Monocytes # (A) 0.5 k/uL (0-1.0); Monocytes % (A) 6 %; Neutrophils # (A) 5.3 k/uL (1.3-7.7); Neutrophils % (A) 59 %; Platelet Count 285 k/uL (150-450); RBC 4.58 m/uL (3.80-5.40)
[2018-03-14 23:06] LABS: Amphetamine Screen,Urine Not Detected (NotDetected); Barbiturate Screen,Urine Not Detected (NotDetected); Benzodiazepines Screen,Urine Not Detected (NotDetected); Cocaine Screen,Urine Not Detected (NotDetected); Methadone Screen, Urine Not Detected (NotDetected); Opiate Screen,Urine Not Detected (NotDetected); Oxycodone Screen, Urine Not Detected (NotDetected); Phencyclidine Screen,Urine Not Detected (NotDetected); Tricyclic Antidepressant,Urine Not Detected (NotDetected); Urn Cannabinoid Scrn Detected (NotDetected)
[2018-03-14 23:12] LABS: ALT 32 U/L (9-52); AST 23 U/L (14-36); Albumin 4.5 g/dL (3.5-5.0); Alkaline Phosphatase 65 U/L (38-126); Anion Gap 13 mmol/L; Blood Urea Nitrogen 6 mg/dL (7-17); Calcium 9.7 mg/dL (8.4-10.2); Carbon Dioxide 25 mmol/L (22-30); Chloride 102 mmol/L (98-107); Glucose 83 mg/dL (74-99); Potassium 3.9 mmol/L (3.5-5.1); Sodium 140 mmol/L (137-145); Total Bilirubin 0.5 mg/dL (0.2-1.3); Total Protein 6.9 g/dL (6.3-8.2)
[2018-03-14 23:20] VITALS: RESP 18
--- NOTE | 2018-03-14 23:42 | CT ---
EXAMINATION TYPE: CT brain wo con DATE OF EXAM: 03/14/2018 COMPARISON: 04/24/2016 HISTORY: Seizure CT DLP: 892.10 mGycm. Automated Exposure Control for Dose Reduction was Utilized. TECHNIQUE: CT scan of the head is performed without contrast. FINDINGS: Ventricles and sulci appear normal. There is no mass effect nor midline shift. There is n o sign of intracranial hemorrhage. The calvarium is intact. CONCLUSION: Negative CT scan of the brain. No change.
[2018-03-14] MEDS ORDERED: ONDANSETRON 4 MG/2 ML VIAL IVP STA (23:52)
--- NOTE | 2018-03-14 23:52 | ED ---
Seizure HPI - General Chief Complaint: Seizure Stated Complaint: seizure Time Seen by Provider: 03/14/18 22:07 Source: patient, RN notes reviewed, old records reviewed Mode of arrival: wheelchair Limitations: no limitations - History of Present Illness Initial Comments: Patient is a 33-year-old female chief complaint of seizure-like activity. She reports that she had some seizure-like activity that was in her left arm. Conjunctivae headache at this time. She states this happened 2 hours ago. She' s been postictal since that time. Denies any fever or chills. No other symptoms. Chest Dr. Mosqueda. - Related Data Home Medications Medication Instructions Recorded Confirmed Cyclobenzaprine [Flexeril] 10 mg PO TID PRN 07/13/15 03/14/18 lamoTRIgine [LaMICtal] 200 mg PO QAM 03/16/16 03/14/18 Escitalopram [Lexapro] 20 mg PO HS 03/21/17 03/14/18 Albuterol Inhaler [Ventolin Hfa 2 puff INHALATION RT-Q6H PRN 03/14/18 03/14/18 Inhaler] Multivitamins, Thera [Multivitamin 1 tab PO DAILY 03/14/18 03/14/18 (formulary)] Allergies Allergy/AdvReac Type Severity Reaction Status Date / Time No Known Allergies Allergy Verified 03/14/18 22:09 Review of Systems ROS Statement: Those systems with pertinent positive or pertinent negative responses have been documented in the HPI. ROS Other: All systems not noted in ROS Statement are negative. 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 Past Psychological History: Anxiety, Depression, Panic Disorder, PTSD Smoking Status: Current every day smoker Past Alcohol Use History: Occasional Past Drug Use History: Marijuana - Past Family History Mother Family Medical History: Diabetes Mellitus, Hypertension Father Additional Family Medical History / Comment(s): had physical and mental disabilities at age 46. Father Brother(s) Family Medical History: Diabetes Mellitus, Hypertension General Exam - General Exam Comments Initial Comments: Failure field. Alert and oriented. No acute distress. Limitations: no limitations Head exam: Present: atraumatic, normocephalic, normal inspection Eye exam: Present: normal appearance, PERRL, EOMI. Absent: scleral icterus, conjunctival injection, periorbital swelling ENT exam: Present: normal exam, mucous membranes moist Neck exam: Present: normal inspection. Absent: tenderness, meningismus, lymphadenopathy Respiratory exam: Present: normal lung sounds bilaterally. Absent: respiratory distress, wheezes, rales, rhonchi, stridor Cardiovascular Exam: Present: regular rate, normal rhythm, normal heart sounds. Absent: systolic murmur, diastolic murmur, rubs, gallop, clicks GI/Abdominal exam: Present: soft, normal bowel sounds. Absent: distended, tenderness, guarding, rebound, rigid Extremities exam: Present: normal inspection, full ROM, normal capillary refill. Absent: tenderness, pedal edema, joint swelling, calf tenderness Back exam: Present: normal inspection Neurological exam: Present: alert, oriented X3, CN II-XII intact Psychiatric exam: Present: normal affect, normal mood Skin exam: Present: warm, dry, intact, normal color. Absent: rash Course Vital Signs 03/14/18 03/14/18 20:50 23:19 Temperature 98.5 F Pulse Rate 73 71 Respiratory 20 18 Rate Blood Pressure 109/73 103/58 O2 Sat by Pulse 100 74 L Oximetry Medical Decision Making - Medical Decision Making There were no [employer] chief complaint of seizure-like activity. Patient's laboratory was reviewed and unremarkable. CT brain was negative for any acute process. EKG shows no acute abdomen [place]. - Lab Data Result diagrams: 03/14/18 22:31 03/14/18 22:31 Lab Results 03/14/18 03/14/18 03/14/18 Range/Units 22:27 22:27 22:31 WBC 9.0 (3.8-10.6) k/uL RBC 4.58 (3.80-5.40) m/uL Hgb 14.2 (11.4-16.0) gm/dL Hct 41.3 (34.0-46.0) % MCV 90.3 (80.0-100.0) fL MCH 31.0 (25.0-35.0) pg MCHC 34.4 (31.0-37.0) g/dL RDW 13.0 (11.5-15.5) % Plt Count 285 (150-450) k/uL Neutrophils % 59 % Lymphocytes % 31 % Monocytes % 6 % Eosinophils % 2 % Basophils % 0 % Neutrophils # 5.3 (1.3-7.7) k/uL Lymphocytes # 2.8 (1.0-4.8) k/uL Monocytes # 0.5 (0-1.0) k/uL Eosinophils # 0.2 (0-0.7) k/uL Basophils # 0.0 (0-0.2) k/uL Sodium (137-145) mmol/L Potassium (3.5-5.1) mmol/L Chloride (98-107) mmol/L Carbon Dioxide (22-30) mmol/L Anion Gap mmol/L BUN (7-17) mg/dL Creatinine (0.52-1.04) mg/dL Est GFR (CKD-EPI)AfAm (>60 ml/min/1.73 sqM) Est GFR (CKD-EPI)NonAf (>60 ml/min/1.73 sqM) Glucose (74-99) mg/dL Calcium (8.4-10.2) mg/dL Total Bilirubin (0.2-1.3) mg/dL AST (14-36) U/L ALT (9-52) U/L Alkaline Phosphatase (38-126) U/L Creatine Kinase (30-135) U/L Troponin I (0.000-0.034) ng/mL Total Protein (6.3-8.2) g/dL Albumin (3.5-5.0) g/dL Urine Color Yellow Urine Appearance Clear (Clear) Urine pH 7.5 (5.0-8.0) Ur Specific [place] 1.010 (1.001-1.035) Urine Protein Negative (Negative) Urine Glucose (UA) Negative (Negative) Urine Ketones Negative (Negative) Urine Blood Negative (Negative) Urine Nitrite Negative (Negative) Urine Bilirubin Negative (Negative) Urine Urobilinogen <2.0 (<2.0) mg/dL Ur Leukocyte Esterase Negative (Negative) Urine HCG, Qual Not Detected (Not Detectd) Urine Opiates Screen Not Detected (NotDetected) Ur Oxycodone Screen Not Detected (NotDetected) Urine Methadone Screen Not Detected (NotDetected) Ur Propoxyphene Screen Not Detected (NotDetected) Ur Barbiturates Screen Not Detected (NotDetected) U Tricyclic Antidepress Not Detected (NotDetected) Ur Phencyclidine Scrn Not Detected (NotDetected) Ur Amphetamines Screen Not Detected (NotDetected) U Methamphetamines Scrn Not Detected (NotDetected) U Benzodiazepines Scrn Not Detected (NotDetected) Urine Cocaine Screen Not Detected (NotDetected) U Marijuana (THC) Screen Detected H (NotDetected) 03/14/18 03/14/18 03/14/18 Range/Units 22:31 22:31 22:31 WBC (3.8-10.6) k/uL RBC (3.80-5.40) m/uL Hgb (11.4-16.0) gm/dL Hct (34.0-46.0) % MCV (80.0-100.0) fL MCH (25.0-35.0) pg MCHC (31.0-37.0) g/dL RDW (11.5-15.5) % Plt Count (150-450) k/uL Neutrophils % % Lymphocytes % % Monocytes % % Eosinophils % % Basophils % % Neutrophils # (1.3-7.7) k/uL Lymphocytes # (1.0-4.8) k/uL Monocytes # (0-1.0) k/uL Eosinophils # (0-0.7) k/uL Basophils # (0-0.2) k/uL Sodium 140 (137-145) mmol/L Potassium 3.9 (3.5-5.1) mmol/L Chloride 102 (98-107) mmol/L Carbon Dioxide 25 (22-30) mmol/L Anion Gap 13 mmol/L BUN 6 L (7-17) mg/dL Creatinine 0.64 (0.52-1.04) mg/dL Est GFR (CKD-EPI)AfAm >90 (>60 ml/min/1.73 sqM) Est GFR (CKD-EPI)NonAf >90 (>60 ml/min/1.73 sqM) Glucose 83 (74-99) mg/dL Calcium 9.7 (8.4-10.2) mg/dL Total Bilirubin 0.5 (0.2-1.3) mg/dL AST 23 (14-36) U/L ALT 32 (9-52) U/L Alkaline Phosphatase 65 (38-126) U/L Creatine Kinase 57 (30-135) U/L Troponin I <0.012 (0.000-0.034) ng/mL Total Protein 6.9 (6.3-8.2) g/dL Albumin 4.5 (3.5-5.0) g/dL Urine Color Urine Appearance (Clear) Urine pH (5.0-8.0) Ur Specific [place] (1.001-1.035) Urine Protein (Negative) Urine Glucose (UA) (Negative) Urine Ketones (Negative) Urine Blood (Negative) Urine Nitrite (Negative) Urine Bilirubin (Negative) Urine Urobilinogen (<2.0) mg/dL Ur Leukocyte Esterase (Negative) Urine HCG, Qual (Not Detectd) Urine Opiates Screen (NotDetected) Ur Oxycodone Screen (NotDetected) Urine Methadone Screen (NotDetected) Ur Propoxyphene Screen (NotDetected) Ur Barbiturates Screen (NotDetected) U Tricyclic Antidepress (NotDetected) Ur Phencyclidine Scrn (NotDetected) Ur Amphetamines Screen (NotDetected) U Methamphetamines Scrn (NotDetected) U Benzodiazepines Scrn (NotDetected) Urine Cocaine Screen (NotDetected) U Marijuana (THC) Screen (NotDetected) 03/14/18 23:52 EKG performed at 2241 shows normal sinus rhythm with sinus arrhythmia. Normal EKG. Introitus is CT was removed. Intervals 136. Stressors and 88. QTc is 44/410. - Radiology Data Radiology results: report reviewed CT brain is negative for any acute process. Disposition Clinical Impression: Seizure disorder Disposition: HOME SELF-CARE Condition: Good Instructions: Recurrent Seizures in Adults (ED) Additional Instructions: Patient has a follow-up with primary care provider and neurology. Patient is not to drive for 6 months after seizure-like activity. Return to emergency department if any alarming signs or symptoms occur. Is patient prescribed a controlled substance at d/c from ED?: No When asked, does pt state using other controlled substances?: No If prescribed controlled substance>3 days was MAPS reviewed?: No If opioid is for acute pain is fill amount 7 days or less?: No If Rx opioid, was Start Talking consent form obtained?: No Referrals: Colton Yeung MD [Primary Care Provider] - 1-2 days Gretchen Mosqueda MD [STAFF PHYSICIAN] - 1-2 days Time of Disposition: 00:16
[2018-03-15 00:32] VITALS: BP 99/63; PULSE 77; TEMP 98
== END 2018-03-15 00:28 | disposition home or self-care (01) ==
LOC: EC 20:26
DX: G40.909 Epilepsy, unspecified, not intractable, without status epilepticus (principal); J44.9 Chronic obstructive pulmonary disease, unspecified; F41.9 Anxiety disorder, unspecified; F32.9 Major depressive disorder, single episode, unspecified; F43.10 Post-traumatic stress disorder, unspecified; F17.200 Nicotine dependence, unspecified, uncomplicated; Z79.899 Other long term (current) drug therapy
CPT/HCPCS: 36415; 70450; 80053; 80306; 81003; 81025; 82550; 84484; 85025; 93005; 96361; 96374; 99285

== ENCOUNTER → 2018-05-12 | Outpatient (CLI) | payer OTHER ==
--- NOTE | 2018-05-12 21:16 | MR ---
EXAMINATION TYPE: MR brain wo/w con DATE OF EXAM: 05/12/2018 COMPARISON: CT brain dated 04/24/2016 HISTORY: Migraines TECHNIQUE: Multiplanar, multisequence images of the brain and brainstem is performed without and with IV contras t, utilizing 6.5 mL intravenous Gadavist . FINDINGS: Diffusion weighted images demonstrate no evidence of a recent infarct or other diffusion ab normality. There is no extra-axial fluid collection or significant white matter signal abnormality. The ventricular system and cisternal spaces are normal in size and appearance. The brain volume is age appropriate. Midline structures demonstrate normal morphology. The craniocervical junction appears within normal limits. Post contrast images demonstrate no abnormal enhancement. The dural venous sinuses appear pa tent. Minimal mucosal thickening is seen within the ethmoid sinuses. Otherwise the visualized sinuses are clear and the globes are intact. IMPRESSION: 1. No MR evidence of white matter change to suggest demyelinating disease or sequela of chronic migra jing. No acute intracranial process. 2. No abnormal intracranial enhancement or evidence of intracranial mass.
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
== END | disposition home or self-care (01) ==
LOC: RADMRIMAIN 12:03
PROVIDERS: ATTEND Psychiatry & Neurology Pain Medicine
DX: M48.061 Spinal stenosis, lumbar region without neurogenic claudication (principal); M99.73 Connective tissue and disc stenosis of intervertebral foramina of lumbar region; M51.27 Other intervertebral disc displacement, lumbosacral region; M46.86 Other specified inflammatory spondylopathies, lumbar region; M99.71 Connective tissue and disc stenosis of intervertebral foramina of cervical region; M47.812 Spondylosis without myelopathy or radiculopathy, cervical region; R51 Headache
CPT/HCPCS: 70553; 72141; 72148; A9581

== ENCOUNTER 2018-07-04 11:44 | Inpatient (IN) | payer OTHER ==
[2018-07-04] MEDS ORDERED: methylPREDNISolone SOD SUCCI 125 MG/2 ML VIAL IV STA (12:37)
[2018-07-04] MEDS ORDERED: SODIUM CHLORIDE 0.9% 1,000 ML IV STA (12:37)
[2018-07-04] MEDS ORDERED: IPRATROPIUM-ALBUTEROL 3 ML NEB INHALATION STA ×3 (12:37→15:43)
--- NOTE | 2018-07-04 12:40 | ED ---
URI HPI - General Chief Complaint: Upper Respiratory Infection Stated Complaint: Sob Time Seen by Provider: 07/04/18 12:30 Source: patient, RN notes reviewed Mode of arrival: ambulatory Limitations: no limitations - History of Present Illness Initial Comments: This a 33-year-old female with a history of COPD and asthma and was a smoker about one pack is here yesterday who states she had the onset 6 days ago of difficulty with breathing she's been using her home medications without much success. She had a cough of phlegm but she's not sure what color it didn't get up. She also complains some sharp left-sided chest pain along with this. She has no other modifying factors she states she has smoked less because of the difficulty breathing. She reports no other symptoms at this time MD Complaint: cough, other - Related Data Home Medications Medication Instructions Recorded Confirmed Escitalopram [Lexapro] 20 mg PO HS 03/21/17 07/04/18 Cyclobenzaprine [Flexeril] 5 mg PO BID 07/04/18 07/04/18 Cyclobenzaprine [Flexeril] 10 mg PO HS 07/04/18 07/04/18 Gabapentin [Neurontin] 400 mg PO TID 07/04/18 07/04/18 Guaifenesin/Pseudoephedrne HCl 1 tab PO DAILY PRN 07/04/18 07/04/18 [Mucinex D ER Tablet] Allergies Allergy/AdvReac Type Severity Reaction Status Date / Time No Known Allergies Allergy Verified 07/04/18 12:18 Review of Systems ROS Statement: Those systems with pertinent positive or pertinent negative responses have been documented in the HPI. ROS Other: All systems not noted in ROS Statement are negative. 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 Past Psychological History: Anxiety, Depression, Panic Disorder, PTSD Smoking Status: Current every day smoker Past Alcohol Use History: Occasional Past Drug Use History: Marijuana - Past Family History Mother Family Medical History: Diabetes Mellitus, Hypertension Father Additional Family Medical History / Comment(s): had physical and mental disabilities at age 46. Father Brother(s) Family Medical History: Diabetes Mellitus, Hypertension General Exam - General Exam Comments Initial Comments: This a well-developed well-nourished alert awake female Limitations: no limitations General appearance: alert, anxious Head exam: Present: atraumatic, normocephalic, normal inspection Eye exam: Present: normal appearance, PERRL, EOMI. Absent: scleral icterus, conjunctival injection, periorbital swelling ENT exam: Present: normal exam, mucous membranes moist Neck exam: Present: normal inspection. Absent: tenderness, meningismus, lymphadenopathy Respiratory exam: Present: wheezes, decreased breath sounds. Absent: respiratory distress, rales, rhonchi, stridor Cardiovascular Exam: Present: normal rhythm, tachycardia, normal heart sounds. Absent: systolic murmur, diastolic murmur, rubs, gallop, clicks GI/Abdominal exam: Present: soft, normal bowel sounds. Absent: distended, tenderness, guarding, rebound, rigid Extremities exam: Present: normal inspection, full ROM, normal capillary refill. Absent: tenderness, pedal edema, joint swelling, calf tenderness Back exam: Present: normal inspection Neurological exam: Present: alert, oriented X3, CN II-XII intact Psychiatric exam: Present: normal affect, normal mood Skin exam: Present: warm, dry, intact, normal color. Absent: rash Course Vital Signs 07/04/18 07/04/18 07/04/18 11:48 12:51 12:59 Temperature 98.3 F Pulse Rate 105 H 90 92 Respiratory 20 Rate Blood Pressure 126/76 O2 Sat by Pulse 100 Oximetry 07/04/18 07/04/18 07/04/18 13:02 13:09 14:17 Temperature Pulse Rate 97 78 Respiratory 18 18 Rate Blood Pressure O2 Sat by Pulse 100 Oximetry 07/04/18 07/04/18 07/04/18 14:27 15:48 16:00 Temperature Pulse Rate 84 100 104 H Respiratory Rate Blood Pressure O2 Sat by Pulse Oximetry - Reevaluation(s) Reevaluation #1: 07/04/18 15:14 Reevaluation patient revealed some improvement but still wheezing and rhonchi at the bases. Patient still feels dyspneic but does admit to some improvement. IV magnesium is in progress. Medical Decision Making - Lab Data Result diagrams: 07/04/18 12:55 07/04/18 12:55 Lab Results 07/04/18 07/04/18 07/04/18 Range/Units 12:55 12:55 12:55 WBC 7.3 (3.8-10.6) k/uL RBC 4.47 (3.80-5.40) m/uL Hgb 13.8 (11.4-16.0) gm/dL Hct 40.7 (34.0-46.0) % MCV 91.1 (80.0-100.0) fL MCH 30.8 (25.0-35.0) pg MCHC 33.8 (31.0-37.0) g/dL RDW 12.2 (11.5-15.5) % Plt Count 289 (150-450) k/uL Neutrophils % 68 % Lymphocytes % 25 % Monocytes % 3 % Eosinophils % 2 % Basophils % 0 % Neutrophils # 5.0 (1.3-7.7) k/uL Lymphocytes # 1.8 (1.0-4.8) k/uL Monocytes # 0.2 (0-1.0) k/uL Eosinophils # 0.1 (0-0.7) k/uL Basophils # 0.0 (0-0.2) k/uL PT (9.0-12.0) sec INR (<1.2) APTT (22.0-30.0) sec D-Dimer (<0.60) mg/L FEU Sodium 141 (137-145) mmol/L Potassium 3.8 (3.5-5.1) mmol/L Chloride 109 H (98-107) mmol/L Carbon Dioxide 23 (22-30) mmol/L Anion Gap 9 mmol/L BUN 5 L (7-17) mg/dL Creatinine 0.59 (0.52-1.04) mg/dL Est GFR (CKD-EPI)AfAm >90 (>60 ml/min/1.73 sqM) Est GFR (CKD-EPI)NonAf >90 (>60 ml/min/1.73 sqM) Glucose 89 (74-99) mg/dL Calcium 9.6 (8.4-10.2) mg/dL Magnesium 1.9 (1.6-2.3) mg/dL Total Bilirubin 0.5 (0.2-1.3) mg/dL AST 23 (14-36) U/L ALT 20 (9-52) U/L Alkaline Phosphatase 78 (38-126) U/L Total Creatine Kinase 58 (30-135) U/L CK-MB (CK-2) 0.3 (0.0-2.4) ng/mL CK-MB (CK-2) Rel Index 0.5 Troponin I <0.012 (0.000-0.034) ng/mL NT-Pro-B Natriuret Pep pg/mL Total Protein 7.0 (6.3-8.2) g/dL Albumin 4.1 (3.5-5.0) g/dL 07/04/18 07/04/18 Range/Units 12:55 12:55 WBC (3.8-10.6) k/uL RBC (3.80-5.40) m/uL Hgb (11.4-16.0) gm/dL Hct (34.0-46.0) % MCV (80.0-100.0) fL MCH (25.0-35.0) pg MCHC (31.0-37.0) g/dL RDW (11.5-15.5) % Plt Count (150-450) k/uL Neutrophils % % Lymphocytes % % Monocytes % % Eosinophils % % Basophils % % Neutrophils # (1.3-7.7) k/uL Lymphocytes # (1.0-4.8) k/uL Monocytes # (0-1.0) k/uL Eosinophils # (0-0.7) k/uL Basophils # (0-0.2) k/uL PT 10.1 (9.0-12.0) sec INR 1.0 (<1.2) APTT 26.8 (22.0-30.0) sec D-Dimer 0.27 (<0.60) mg/L FEU Sodium (137-145) mmol/L Potassium (3.5-5.1) mmol/L Chloride (98-107) mmol/L Carbon Dioxide (22-30) mmol/L Anion Gap mmol/L BUN (7-17) mg/dL Creatinine (0.52-1.04) mg/dL Est GFR (CKD-EPI)AfAm (>60 ml/min/1.73 sqM) Est GFR (CKD-EPI)NonAf (>60 ml/min/1.73 sqM) Glucose (74-99) mg/dL Calcium (8.4-10.2) mg/dL Magnesium (1.6-2.3) mg/dL Total Bilirubin (0.2-1.3) mg/dL AST (14-36) U/L ALT (9-52) U/L Alkaline Phosphatase (38-126) U/L Total Creatine Kinase (30-135) U/L CK-MB (CK-2) (0.0-2.4) ng/mL CK-MB (CK-2) Rel Index Troponin I (0.000-0.034) ng/mL NT-Pro-B Natriuret Pep 50 pg/mL Total Protein (6.3-8.2) g/dL Albumin (3.5-5.0) g/dL - EKG Data -: EKG Interpreted by Tn EKG shows normal: sinus rhythm, axis, intervals, QRS complexes, ST-T waves (EKG shows a normal sinus rhythm of 82. Interval 136 QRS duration 82 QT since QTC 370/[address]-T wave changes) Rate: normal - Radiology Data Radiology results: report reviewed (I did review the imaging and report no acute findings.), image reviewed Critical Care Time Critical Care Time: Yes Critical Care Time: 37 minutes of critical care time which includes the initial evaluation with history physical labs x-rays several reevaluation patient responsive therapy discuss with the admitting physician discussed with the patient regarding the findings admission orders and documentation of the above Disposition Clinical Impression: Asthma exacerbation in COPD, Failure of outpatient treatment Disposition: ADMITTED IP TO THIS [facility] Condition: Stable Referrals: Colton Yeung MD [Primary Care Provider] - 1-2 days
[2018-07-04] MEDS ORDERED: LORazepam 2 MG/ML INJ IV STA (13:01)
[2018-07-04 13:12] LABS: Basophils % (A) 0 %; Eosinophils # (A) 0.1 k/uL (0-0.7); Eosinophils % (A) 2 %; HCT 40.7 % (34.0-46.0); HGB 13.8 gm/dL (11.4-16.0); Lymphocytes # (A) 1.8 k/uL (1.0-4.8); Lymphocytes % (A) 25 %; MCH 30.8 pg (25.0-35.0); MCHC 33.8 g/dL (31.0-37.0); MCV 91.1 fL (80.0-100.0); Mean Platelet Volume 6.3; Monocytes # (A) 0.2 k/uL (0-1.0); Monocytes % (A) 3 %; Neutrophils % (A) 68 %; Platelet Count 289 k/uL (150-450); RBC 4.47 m/uL (3.80-5.40); RDW 12.2 % (11.5-15.5); WBC 7.3 k/uL (3.8-10.6)
[2018-07-04 13:20] LABS: ALT 20 U/L (9-52); AST 23 U/L (14-36); Albumin 4.1 g/dL (3.5-5.0); Alkaline Phosphatase 78 U/L (38-126); Anion Gap 9 mmol/L; Blood Urea Nitrogen 5 mg/dL (7-17); Calcium 9.6 mg/dL (8.4-10.2); Carbon Dioxide 23 mmol/L (22-30); Chloride 109 mmol/L (98-107); Glucose 89 mg/dL (74-99); Magnesium 1.9 mg/dL (1.6-2.3); Potassium 3.8 mmol/L (3.5-5.1); Sodium 141 mmol/L (137-145); Total Bilirubin 0.5 mg/dL (0.2-1.3)
[2018-07-04 13:22] LABS: D-Dimer 0.27 mg/L FEU (<0.60); Partial Thromboplastin Time 26.8 sec (22.0-30.0); Prothrombin Time 10.1 sec (9.0-12.0)
[2018-07-04 13:37] LABS: Creatine Kinase 58 U/L (30-135)
--- NOTE | 2018-07-04 13:39 | XR ---
EXAMINATION TYPE: XR chest 2V DATE OF EXAM: 07/04/2018 COMPARISON: Prior chest x-ray 06/06/2017 HISTORY: Difficulty breathing TECHNIQUE: Frontal and lateral views of the chest are obtained. FINDINGS: There is no focal air space opacity, pleural effusion, or pneumothorax seen. The cardiac silhouette size is within normal limits. The osseous structures are intact. Surgical clips are pres ent in the right upper quadrant. There is a spinal curvature. IMPRESSION: No acute cardiopulmonary process.
[2018-07-04 13:48] LABS: Creatine Kinase MB 0.3 ng/mL (0.0-2.4); Troponin I <0.012 ng/mL (0.000-0.034)
[2018-07-04] MEDS ORDERED: MAGNESIUM SULFATE-D5W PMX 1 GM in DEXTROSE/WATER 1 100ML.BAG IVPB ONE (13:57)
[2018-07-04] MEDS ORDERED: guaiFENesin 600 MG TABLET.ER PO PRN (17:01)
[2018-07-04] MEDS ORDERED: PSEUDOEPHEDRINE 30 MG TAB PO PRN (17:53)
[2018-07-04] MEDS: methylPREDNISolone SOD SUCCI 125 MG/2 ML VIAL IV SCH ×2 (18:30→23:49)
[2018-07-04] MEDS: IPRATROPIUM-ALBUTEROL 3 ML NEB INHALATION SCH (19:26)
[2018-07-04] MEDS ORDERED: ALPRAZolam 0.25 MG TAB PO PRN (20:14)
[2018-07-04] MEDS ORDERED: ESCITALOPRAM 20 MG TAB PO SCH (21:00)
[2018-07-04] MEDS ORDERED: CYCLOBENZAPRINE 10 MG TAB PO SCH (21:00)
[2018-07-04] MEDS: GABAPENTIN 400 MG CAP PO SCH (21:07)
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
[2018-07-04] MEDS: HEPARIN SODIUM,PORCINE 5,000 UNIT/ML 1 ML VIAL SQ SCH (23:36)
[2018-07-05] MEDS: IPRATROPIUM-ALBUTEROL 3 ML NEB INHALATION SCH ×5 (03:56→16:30)
[2018-07-05] MEDS: methylPREDNISolone SOD SUCCI 125 MG/2 ML VIAL IV SCH ×3 (06:01→17:22)
[2018-07-05] MEDS: GABAPENTIN 400 MG CAP PO SCH ×2 (08:17→16:43)
[2018-07-05] MEDS: CYCLOBENZAPRINE 5 MG TAB PO SCH ×2 (08:17→16:43)
[2018-07-05] MEDS: HEPARIN SODIUM,PORCINE 5,000 UNIT/ML 1 ML VIAL SQ SCH ×2 (08:17→16:42)
[2018-07-05 08:21] VITALS: RESP 16
[2018-07-05] MEDS ORDERED: AZITHROMYCIN 500 MG TAB PO SCH (13:00)
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
[2018-07-05 15:44] VITALS: BP 114/55; TEMP 99
[2018-07-05 16:42] VITALS: PULSE 108
[2018-07-05] MEDS ORDERED: SYMBICORT 160-4.5 MCG INHALER INHALATION SCH (20:00)
--- NOTE | 2018-07-06 00:22 | P.DS ---
Providers Date of admission: 07/04/18 16:59 Expected date of discharge: 07/05/18 Attending physician: Colton Yeung Consults: 07/04/18 16:58 Consult Physician Routine Consulting Provider: Gail Lora Consult Reason/Comments: COPD exacerbation Do you want consulting provider notified?: Yes Primary care physician: Colton Yeung Hospital Course: Discharge diagnosis Acute asthma exacerbation with possible underlying COPD Chronic ongoing nicotine addiction Scoliosis and chronic back pain Migraine headaches Panic disorder depression anxiety and PTSD History of marijuana use DVT prophylaxis Patient is a 33-year-old female is known history of asthma/COPD, 20 pack years of smoking, scoliosis and migraine headache came to ER with complaints of shortness of breath is has been worsening for the past 6 days. Patient does have cough without bringing out any sputum. Patient says that she had upper respiratory infection recently and was exposed to sick children. Patient also complaining of left-sided chest pain with cough. Otherwise no fever no chills. No nausea vomiting or abdominal pain. No diarrhea or dysuria. No recent travel. EKG normal sinus rhythm Chest x-ray showed no acute cardio pulmonary process. Patient was continued on DuoNeb's and methylprednisolone 60 mg every 6 hourly. Prednisone changed to by mouth. Patient was started on antibiotics in the form of azithromycin. Current with the home medications and followed closely. Smoking cessation has been counseled extensively. Patient did improve clinically. Patient was recommended to stay 1 more day for complete resolution of symptoms. Patient wants to be discharged home today. Smoking cessation has been counseled extensively. Discharge physical examination was done and vitals reviewed. Vital Signs - 24 hr 07/05/18 07/05/18 07/05/18 03:56 04:08 07:00 Temperature 98.1 F Pulse Rate 104 H 108 H Pulse Rate [ 101 H Right] Respiratory 16 Rate Blood Pressure 106/57 [Right Arm] O2 Sat by Pulse 98 Oximetry 07/05/18 07/05/18 07/05/18 07:47 08:00 08:03 Temperature Pulse Rate 107 H 108 H Pulse Rate [ 101 H Right] Respiratory 16 Rate Blood Pressure [Right Arm] O2 Sat by Pulse 98 Oximetry 07/05/18 07/05/18 07/05/18 11:35 11:55 15:00 Temperature 99.0 F Pulse Rate 104 H 112 H Pulse Rate [ 114 H Right] Respiratory 16 Rate Blood Pressure 114/55 [Right Arm] O2 Sat by Pulse 98 Oximetry 07/05/18 07/05/18 16:30 16:41 Temperature Pulse Rate 100 108 H Pulse Rate [ Right] Respiratory Rate Blood Pressure [Right Arm] O2 Sat by Pulse Oximetry Patient Condition at Discharge: Stable Plan - Discharge Summary Discharge Rx Participant: No New Discharge Prescriptions: New Albuterol Inhaler [Ventolin Hfa Inhaler] 2 puff INHALATION RT-Q6H PRN #1 inhaler PRN Reason: Shortness Of Breath Azithromycin [Zithromax] 500 mg PO DAILY #4 tab Budesonide-Formot 160-4.5 Mcg [Symbicort 160-4.5 Mcg Inhaler] 2 puff INHALATION RT-BID #1 inhaler predniSONE 40 mg PO DAILY 5 Days #20 tab Continue Escitalopram [Lexapro] 20 mg PO HS Gabapentin [Neurontin] 400 mg PO TID Cyclobenzaprine [Flexeril] 5 mg PO BID Cyclobenzaprine [Flexeril] 10 mg PO HS Guaifenesin/Pseudoephedrne HCl [Mucinex D ER Tablet] 1 tab PO DAILY PRN PRN Reason: Cold Symptoms Discharge Medication List Escitalopram [Lexapro] 20 mg PO HS 03/21/17 [History] Cyclobenzaprine [Flexeril] 5 mg PO BID 07/04/18 [History] Cyclobenzaprine [Flexeril] 10 mg PO HS 07/04/18 [History] Gabapentin [Neurontin] 400 mg PO TID 07/04/18 [History] Guaifenesin/Pseudoephedrne HCl [Mucinex D ER Tablet] 1 tab PO DAILY PRN [History] Albuterol Inhaler [Ventolin Hfa Inhaler] 2 puff INHALATION RT-Q6H PRN #1 inhaler 07/05/18 [Rx] Azithromycin [Zithromax] 500 mg PO DAILY #4 tab 07/05/18 [Rx] Budesonide-Formot 160-4.5 Mcg [Symbicort 160-4.5 Mcg Inhaler] 2 puff INHALATION RT-BID #1 inhaler 07/05/18 [Rx] predniSONE 40 mg PO DAILY 5 Days #20 tab 07/05/18 [Rx] Follow up Appointment(s)/Referral(s): Colton Yeung MD [Primary Care Provider] - 1 Week Gail Lora MD [STAFF PHYSICIAN] - 1 Week Patient Instructions/Handouts: COPD (Chronic Obstructive Pulmonary Disease) (DC ) Activity/Diet/Wound Care/Special Instructions: Regular diet. Activity as tolerated. NO smoking.Cessation information provided. Discharge Disposition: HOME SELF-CARE
== END 2018-07-05 18:03 | disposition home or self-care (01) | DRG 202 ==
LOC: EC 11:44 → 4MS4W 16:59
PROVIDERS: ADMIT Family Medicine; ATTEND Family Medicine
DX: J45.21 Mild intermittent asthma with (acute) exacerbation (principal); J44.1 Chronic obstructive pulmonary disease with (acute) exacerbation; F17.200 Nicotine dependence, unspecified, uncomplicated; F41.0 Panic disorder [episodic paroxysmal anxiety]; F41.8 Other specified anxiety disorders; F43.10 Post-traumatic stress disorder, unspecified; G43.909 Migraine, unspecified, not intractable, without status migrainosus; G89.29 Other chronic pain; I25.10 Atherosclerotic heart disease of native coronary artery without angina pectoris; M41.9 Scoliosis, unspecified; Z82.49 Family history of ischemic heart disease and other diseases of the circulatory system; Z83.3 Family history of diabetes mellitus; Z90.710 Acquired absence of both cervix and uterus; Z79.899 Other long term (current) drug therapy; Z90.49 Acquired absence of other specified parts of digestive tract; Z98.51 Tubal ligation status; Z71.6 Tobacco abuse counseling; M54.9 Dorsalgia, unspecified; M54.2 Cervicalgia
CPT/HCPCS: 36415; 71046; 80053; 82550; 82553; 83735; 83880; 84484; 85025; 85379; 85610; 85730; 87040; 93005; 94640; 94760; 96361; 96365; 96375; 96376; 99291

== ENCOUNTER 2018-07-25 21:20 | Emergency (ER) | payer OTHER ==
[2018-07-25] MEDS ORDERED: SODIUM CHLORIDE 0.9% 1,000 ML IV ONE (23:16)
[2018-07-25] MEDS ORDERED: METOCLOPRAMIDE 5 MG/ML 2 ML VIAL IVP STA (23:16)
[2018-07-25] MEDS ORDERED: KETOROLAC 30 MG/ML 1 ML VIAL IVP STA (23:16)
[2018-07-25] MEDS ORDERED: diphenhydrAMINE 50 MG/ML 1 ML VIAL IVP STA (23:16)
--- NOTE | 2018-07-25 23:26 | ED ---
Headache HPI - General Chief Complaint: Headache Stated Complaint: Migraine Time Seen by Provider: 07/25/18 22:23 Mode of arrival: ambulatory Limitations: no limitations - History of Present Illness Initial Comments: Patient is a 33-year-old woman with history of migraine headaches. She states that she is having a migraine headache that started around the time she woke up at 7:30 AM. She states that it started as a usual migraine headache, being right side of the neck supple. It is throbbing. She states the pain is constant and has been getting worse over the course the day. She states that it is different than usual because is not responding to her outpatient medicine , Fioricet. She has not had any neurologic symptoms. She does have some stiff neck associated with this one area she also has some nausea. But she states she does get some nausea sometimes with her migraine headache.. Complaint: headache Onset/Timin -: hour(s) Onset Description: gradual Location: occipital Severity: severe Quality: aching, constant Consistency: constant Improves With: nothing Worsens With: none Associated Symptoms: nausea, neck stiffness, photophobia Treatments Prior to Arrival: prescription analgesic (Fioricet) - Related Data Home Medications Medication Instructions Recorded Confirmed Escitalopram [Lexapro] 20 mg PO HS 03/21/17 07/25/18 Cyclobenzaprine [Flexeril] 5 mg PO BID 07/04/18 07/25/18 Cyclobenzaprine [Flexeril] 10 mg PO HS 07/04/18 07/25/18 Gabapentin [Neurontin] 400 mg PO TID 07/04/18 07/25/18 Butalb/APAP/Caff 50-325-40Mg 1 tab PO Q8H PRN 07/25/18 07/25/18 [Fioricet 50-325-40] Previous Rx's Medication Instructions Recorded Albuterol Inhaler [Ventolin Hfa 2 puff INHALATION RT-Q6H PRN #1 07/05/18 Inhaler] inhaler Budesonide-Formot 160-4.5 Mcg 2 puff INHALATION RT-BID #1 inhaler 07/05/18 [Symbicort 160-4.5 Mcg Inhaler] Allergies Allergy/AdvReac Type Severity Reaction Status Date / Time No Known Allergies Allergy Verified 07/25/18 22:47 Review of Systems ROS Statement: Those systems with pertinent positive or pertinent negative responses have been documented in the HPI. ROS Other: All systems not noted in ROS Statement are negative. Constitutional: Denies: fever, chills, weakness Eyes: Denies: eye pain, vision change Respiratory: Denies: cough Cardiovascular: Denies: chest pain Gastrointestinal: Reports: nausea. Denies: abdominal pain, vomiting Genitourinary: Denies: dysuria Musculoskeletal: Denies: back pain Skin: Denies: rash Neurological: Reports: as per HPI, headache. Denies: weakness, numbness, paresthesias Past Medical History Past Medical History: Asthma, Coronary Artery Disease (CAD), Chest Pain / Angina , COPD Additional Past Medical History / Comment(s): Scoliosis, History of vaginal herpes (no outbreak at this time), migraines History of Any Multi-Drug Resistant Organisms: None Reported Past Surgical History: Section, Cholecystectomy, Hysterectomy, Tubal Ligation Additional Past Surgical History / Comment(s): D & C, x3 c-sections Past Anesthesia/Blood Transfusion Reactions: No Reported Reaction Additional Past Anesthesia/Blood Transfusion Reaction / Comment(s): states "takes alot of medication to be put under for pt and family members,has reall bad anxiety".No problems with prior blood transfusion. Past Psychological History: Anxiety, Depression, Panic Disorder, PTSD Smoking Status: Current every day smoker Past Alcohol Use History: Occasional Past Drug Use History: Marijuana - Past Family History Mother Family Medical History: Diabetes Mellitus, Hypertension Father Additional Family Medical History / Comment(s): had physical and mental disabilities at age 46. Father Brother(s) Family Medical History: Diabetes Mellitus, Hypertension General Exam Limitations: no limitations General appearance: alert, in no apparent distress Head exam: Present: atraumatic, normocephalic Eye exam: Present: normal appearance, PERRL, EOMI. Absent: scleral icterus, conjunctival injection Pupils: Present: other (Unable to perform funduscopic exam due to photophobia) ENT exam: Present: normal oropharynx Neck exam: Present: normal inspection. Absent: tenderness, full ROM, lymphadenopathy Respiratory exam: Present: normal lung sounds bilaterally. Absent: respiratory distress, wheezes, rales, rhonchi, stridor Cardiovascular Exam: Present: regular rate, normal rhythm, normal heart sounds. Absent: systolic murmur, diastolic murmur, rubs, gallop Extremities exam: Present: normal inspection, normal capillary refill. Absent: pedal edema, calf tenderness Back exam: Present: normal inspection. Absent: CVA tenderness (R), CVA tenderness (L) Neurological exam: Present: alert, oriented X3. Absent: motor sensory deficit Skin exam: Present: warm, dry, intact, normal color. Absent: rash Course Vital Signs 07/25/18 21:32 Temperature 100.6 F H Pulse Rate 108 H Respiratory 20 Rate Blood Pressure 118/78 O2 Sat by Pulse 99 Oximetry - Reevaluation(s) Reevaluation #1: 07/26/18 00:48 After discussion of risks, benefits, and indications of lumbar puncture, the patient is refusing at this point. Understands that this can be a life- threatening illness, causing and also permanent disability. Medical Decision Making - Medical Decision Making Discussed risks, benefits, and indications of lumbar puncture with the patient. Disposition Clinical Impression: Headache, Fever Disposition: Left Against Medical Advice Condition: Fair Instructions: Acute Headache (ED) Is patient prescribed a controlled substance at d/c from ED?: No Referrals: Colton Yeung MD [Primary Care Provider] - 1-2 days
[2018-07-26] MEDS ORDERED: SUMAtriptan SUCCINATE 6 MG/0.5 ML VIAL SQ STA (00:47)
[2018-07-26 02:42] VITALS: BP 122/89; PULSE 82; RESP 17; TEMP 98.8
== END 2018-07-26 02:31 | disposition left against medical advice (07) ==
LOC: EC 21:20
DX: R51 Headache (principal); R50.9 Fever, unspecified; R11.0 Nausea; M43.6 Torticollis; F41.9 Anxiety disorder, unspecified; F32.9 Major depressive disorder, single episode, unspecified; F43.10 Post-traumatic stress disorder, unspecified; F17.200 Nicotine dependence, unspecified, uncomplicated; Z86.69 Personal history of other diseases of the nervous system and sense organs; Z53.29 Procedure and treatment not carried out because of patient's decision for other reasons; Z79.899 Other long term (current) drug therapy
CPT/HCPCS: 99283; 96374; 96375 ×2; 96361; 96372; J3030; J1200; J2765; J1885

== ENCOUNTER 2018-10-14 16:24 | Emergency (ER) | payer OTHER ==
[2018-10-14] MEDS ORDERED: cefTRIAXone 250 MG VIAL IM STA (17:48)
[2018-10-14] MEDS ORDERED: AZITHROMYCIN 500 MG TAB PO STA (17:49)
[2018-10-14] MEDS ORDERED: ALPRAZolam 1 MG TAB PO STA ×2 (18:04→20:02)
[2018-10-14 18:34] LABS: Amorphous Sediment,Urine Rare /hpf; Appearance,Urine Clear (Clear); Bacteria,Urine Rare /hpf; Bilirubin,Urine Negative (Negative); Blood,Urine Negative (Negative); Color,Urine Yellow; Glucose,Urine (UA) Negative (Negative); Hyaline Casts,Urine 21 /lpf (0-2); Ketones,Urine Negative (Negative); Leukocyte Esterase,Urine Small (Negative); Mucus,Urine Few /hpf; Nitrite,Urine Negative (Negative); Protein,Urine Negative (Negative); Specific Gravity,Urine 1.008 (1.001-1.035); Squamous Epithelial Cell,Urine 2 /hpf (0-4); Urobilinogen,Urine <2.0 mg/dL (<2.0); WBC,Urine 27 /hpf (0-5)
--- NOTE | 2018-10-14 18:35 | US ---
EXAMINATION TYPE: US pelvic complete DATE OF EXAM: 10/14/2018 COMPARISON: US CLINICAL HISTORY: Pain. Pt states pelvic pain, hysterectomy in 2014 TECHNIQUE: Transabdominal (TA). Transabdominal sonographic images of the pelvis were acquired. Date of LMP: 2014 EXAM MEASUREMENTS: Right Ovary: 2.6 x 1.8 x 1.9 cm Left Ovary: 3.1 x 1.8 x 1.8 cm 1. Uterus: Surgically absent 2. Endometrium: Surgically absent 3. Right Ovary: wnl 4. Left Ovary: wnl Spectral, color and waveform doppler imaging shows good arterial and venous flow within the ovaries ; there is no evidence for ovarian torsion. 5. Bilateral Adnexa: wnl 6. Posterior cul-de-sac: wnl IMPRESSION: Hysterectomy. No evidence of ovarian torsion. No free fluid.
[2018-10-14 18:36] LABS: ALT 20 U/L (9-52); AST 17 U/L (14-36); Albumin 3.9 g/dL (3.5-5.0); Alkaline Phosphatase 62 U/L (38-126); Anion Gap 6 mmol/L; Blood Urea Nitrogen 3 mg/dL (7-17); Calcium 9.2 mg/dL (8.4-10.2); Carbon Dioxide 25 mmol/L (22-30); Chloride 109 mmol/L (98-107); Glucose 95 mg/dL (74-99); Potassium 4.2 mmol/L (3.5-5.1); Sodium 140 mmol/L (137-145); Total Bilirubin 0.3 mg/dL (0.2-1.3); Total Protein 6.5 g/dL (6.3-8.2)
[2018-10-14 18:44] LABS: Basophils % (A) 0 %; Eosinophils % (A) 0 %; HCT 42.9 % (34.0-46.0); HGB 13.4 gm/dL (11.4-16.0); Lymphocytes # (A) 0.7 k/uL (1.0-4.8); Lymphocytes % (A) 5 %; MCH 29.3 pg (25.0-35.0); MCHC 31.3 g/dL (31.0-37.0); MCV 93.8 fL (80.0-100.0); Mean Platelet Volume 6.6; Monocytes # (A) 0.4 k/uL (0-1.0); Monocytes % (A) 3 %; Neutrophils # (A) 11.3 k/uL (1.3-7.7); Neutrophils % (A) 90 %; Platelet Count 292 k/uL (150-450); RBC 4.57 m/uL (3.80-5.40); RDW 12.3 % (11.5-15.5); WBC 12.6 k/uL (3.8-10.6)
[2018-10-14 19:12] LABS: Hepatitis A AB IgM Index 0.02; Hepatitis A Antibody IgM NEGATIVE
[2018-10-14] MEDS ORDERED: metroNIDAZOLE 500 MG TAB PO STA (20:05)
--- NOTE | 2018-10-14 20:15 | ED ---
Female Urogenital HPI - General Chief complaint: Urogenital Stated complaint: Female Gu Time Seen by Provider: 10/14/18 17:20 Source: patient Mode of arrival: ambulatory Limitations: no limitations - History of Present Illness Initial comments: This is a 33-year-old female with past medical history of herpes simplex virus, hysterectomy presents today for chief complaint of vaginal discharge and lower pelvic pain. Take that she recently found out that her was cheating. She states she has had dysuria, urgency, frequency as well as increased vaginal discharge for the past 2 weeks. Patient does admit to lower pelvic cramping. Denies nausea, vomiting, vaginal lesions. Pt denies fever, chills, malaise. Pt states she is concerned of HIV and Hepatitis C given the person was cheating with is an IVDU. Remainder of ROS (-), patient denies any recent fever , chills, shortness of breath, chest pain, back pain, numbness or tingling, dysuria or hematuria, constipation or diarrhea, headaches or visual changes, or any other complaints. Upon arrival pt is hyperventilating, crying uncontrollably. - Related Data Home Medications Medication Instructions Recorded Confirmed Escitalopram [Lexapro] 20 mg PO HS 03/21/17 07/25/18 Cyclobenzaprine [Flexeril] 5 mg PO BID 07/04/18 07/25/18 Cyclobenzaprine [Flexeril] 10 mg PO HS 07/04/18 07/25/18 Gabapentin [Neurontin] 400 mg PO TID 07/04/18 07/25/18 Butalb/APAP/Caff 50-325-40Mg 1 tab PO Q8H PRN 07/25/18 07/25/18 [Fioricet 50-325-40] Previous Rx's Medication Instructions Recorded Albuterol Inhaler [Ventolin Hfa 2 puff INHALATION RT-Q6H PRN #1 07/05/18 Inhaler] inhaler Budesonide-Formot 160-4.5 Mcg 2 puff INHALATION RT-BID #1 inhaler 07/05/18 [Symbicort 160-4.5 Mcg Inhaler] Allergies Allergy/AdvReac Type Severity Reaction Status Date / Time No Known Allergies Allergy Verified 10/14/18 16:50 Review of Systems ROS Statement: Those systems with pertinent positive or pertinent negative responses have been documented in the HPI. ROS Other: All systems not noted in ROS Statement are negative. Constitutional: Denies: fever, chills, night sweats ENT: Denies: ear pain, throat pain Respiratory: Denies: cough, dyspnea, wheezes, hemoptysis, stridor Cardiovascular: Denies: chest pain, palpitations Gastrointestinal: Reports: abdominal pain. Denies: nausea, vomiting, diarrhea, constipation, hematemesis, melena, hematochezia Genitourinary: Reports: urgency, dysuria, frequency, discharge. Denies: hematuria Musculoskeletal: Denies: back pain Skin: Denies: rash, lesions Neurological: Denies: headache, weakness, numbness, paresthesias, confusion Past Medical History Past Medical History: Asthma, Coronary Artery Disease (CAD), Chest Pain / Angina , COPD Additional Past Medical History / Comment(s): Scoliosis, History of vaginal herpes (no outbreak at this time), migraines History of Any Multi-Drug Resistant Organisms: None Reported Past Surgical History: Section, Cholecystectomy, Hysterectomy, Tubal Ligation Additional Past Surgical History / Comment(s): D & C, x3 c-sections Past Anesthesia/Blood Transfusion Reactions: No Reported Reaction Additional Past Anesthesia/Blood Transfusion Reaction / Comment(s): states "takes alot of medication to be put under for pt and family members,has reall bad anxiety".No problems with prior blood transfusion. Past Psychological History: Anxiety, Depression, Panic Disorder, PTSD Smoking Status: Current every day smoker Past Alcohol Use History: Occasional Past Drug Use History: Marijuana - Past Family History Mother Family Medical History: Diabetes Mellitus, Hypertension Father Additional Family Medical History / Comment(s): had physical and mental disabilities at age 46. Father Brother(s) Family Medical History: Diabetes Mellitus, Hypertension General Exam - General Exam Comments Initial Comments: General: The patient is awake and alert, in no distress, and does not appear acutely ill. Pt crying, upset. Eye: Pupils are equal, round and reactive to light, extra-ocular movements are intact. No nystagmus. There is normal conjunctiva bilaterally. No signs of icterus. Ears, nose, mouth and throat: There are moist mucous membranes and no oral lesions. Neck: The neck is supple, there is no tenderness or JVD. Cardiovascular: There is a regular rate and rhythm. No murmur, rub or gallop is appreciated. Respiratory: Lungs are clear to auscultation, respirations are non-labored, breath sounds are equal. No wheezes, stridor, rales, or rhonchi. Gastrointestinal:No noted diaphoresis, jaundice, pallor, protecting postures or squirming. Symmetrical pigmentation of abdomen without signs of inflammation. Umbilicus mildline, inverted without swelling. No dilated veins. Abdomen contour obese, no noted abdominal distention. No visible masses. No peristalsis, aortic pulsations, or ventral hernia. Bowel sounds audible in all 4 quadrants, unremarkable. No friction rubs or venous hums. No epigastic, hepatic or abdominal bruits. Pt admits to tenderness to deep palpation of the superior bladder margin. No tenderness to light or deep palpation of the remaining abdomen. Liver edge, not palpable. Spleen edge, right and left kidney not palpable. Special Testing: Negative [place], Rovsing, McBurney, Dilma, cutaneous hyperesthesia. Iliopsoas and obturator tests negative bilaterally. Negative Heel Jar test. No CVA tenderness. Digital rectal exam deferred. Negative contreras turners or cullens sign Musculoskeletal: Normal ROM, no tenderness. Strength 5/5. Sensation intact. Pulses equal bilaterally 2+. Neurological: A&O x 3. CN II-XII intact, There are no obvious motor or sensory deficits. Coordination appears grossly intact. Speech is normal. Skin: Skin is warm and dry and no rashes or lesions are noted. Psychiatric: Cooperative, appropriate mood & affect, normal judgment. Pelvic: Cervix surgically absent. Moist pink well rugated vaginal mucosa, female hair pattern, shaved. No vaginal lesions. No noted rectal lesions. White frothy discharge in vault, no vaginal bleeding. No adnexal tenderness. Limitations: no limitations Course Vital Signs 10/14/18 10/14/18 16:46 20:22 Temperature 99.4 F 98.2 F Pulse Rate 132 H 115 H Respiratory 20 18 Rate Blood Pressure 119/75 96/63 O2 Sat by Pulse 98 98 Oximetry Medical Decision Making - Medical Decision Making PE concerning for vaginitis. Surgically absent cervix. Mild-moderate tenderness to palpation of pelvic region/superior bladder margin. Remainder of abdominal benign, no guarding. No palpable liver enlargement. Discharge in vault concerning for infection. US no TOA. No free fluid. No acute/concerning findings. Trichomonas (+). Patient treated with Flagyl. Pt tachy upon arrival however, pt continues to cry stating she just found out about her cheating. Pt given xanax. Improved pt HR to palpation. Pt treated her gonorrhea and chlamydia. Hepatitis panel pending. HIV testing pending. I discussed that initial testing may be negative in regards to hepatitis and HIV testing. I discussed patient need to retest in the next 1-2 months. Patient verbalized understanding. At this time I do feel pt is stable for discharge, she denies suicidal or homicidal ideations. Pt was told about (+) STD testing prior to discharge VS, began crying again-I feel this is case of increased HR. P requested xanax prescription, I did give 1 pt, one 1mg tablet of xanax to take home for administration in 3-6 hours. Pt verbalized understanding of administration and associated risks. Discussed case with attending provider Dr. Boswell who agreed wt impression and plan Pt discharged with primary care f/u in next 1-2 days, and next month for repeat testing. Return parameters discussed at length with patient who verbalized understanding. Patient did not questions upon discharge. - Lab Data Result diagrams: 10/14/18 18:05 10/14/18 18:05 Lab Results 10/14/18 10/14/18 10/14/18 Range/Units 18:05 18:05 18:07 WBC 12.6 H (3.8-10.6) k/uL RBC 4.57 (3.80-5.40) m/uL Hgb 13.4 (11.4-16.0) gm/dL Hct 42.9 (34.0-46.0) % MCV 93.8 (80.0-100.0) fL MCH 29.3 (25.0-35.0) pg MCHC 31.3 (31.0-37.0) g/dL RDW 12.3 (11.5-15.5) % Plt Count 292 (150-450) k/uL Neutrophils % 90 % Lymphocytes % 5 % Monocytes % 3 % Eosinophils % 0 % Basophils % 0 % Neutrophils # 11.3 H (1.3-7.7) k/uL Lymphocytes # 0.7 L (1.0-4.8) k/uL Monocytes # 0.4 (0-1.0) k/uL Eosinophils # 0.0 (0-0.7) k/uL Basophils # 0.0 (0-0.2) k/uL Sodium 140 (137-145) mmol/L Potassium 4.2 (3.5-5.1) mmol/L Chloride 109 H (98-107) mmol/L Carbon Dioxide 25 (22-30) mmol/L Anion Gap 6 mmol/L BUN 3 L (7-17) mg/dL Creatinine 0.63 (0.52-1.04) mg/dL Est GFR (CKD-EPI)AfAm >90 (>60 ml/min/1.73 sqM) Est GFR (CKD-EPI)NonAf >90 (>60 ml/min/1.73 sqM) Glucose 95 (74-99) mg/dL Calcium 9.2 (8.4-10.2) mg/dL Total Bilirubin 0.3 (0.2-1.3) mg/dL AST 17 (14-36) U/L ALT 20 (9-52) U/L Alkaline Phosphatase 62 (38-126) U/L Total Protein 6.5 (6.3-8.2) g/dL Albumin 3.9 (3.5-5.0) g/dL Urine Color Urine Appearance (Clear) Urine pH (5.0-8.0) Ur Specific [place] (1.001-1.035) Urine Protein (Negative) Urine Glucose (UA) (Negative) Urine Ketones (Negative) Urine Blood (Negative) Urine Nitrite (Negative) Urine Bilirubin (Negative) Urine Urobilinogen (<2.0) mg/dL Ur Leukocyte Esterase (Negative) Urine WBC (0-5) /hpf Ur Squamous Epith Cells (0-4) /hpf Amorphous Sediment (None) /hpf Urine Bacteria (None) /hpf Hyaline Casts (0-2) /lpf Urine Mucus (None) /hpf Urine HCG, Qual Not Detected (Not Detectd) Hepatitis A IgM Ab Trichomonas Ag (Rapid) (Negative) 10/14/18 10/14/18 10/14/18 Range/Units 18:07 18:18 19:11 WBC (3.8-10.6) k/uL RBC (3.80-5.40) m/uL Hgb (11.4-16.0) gm/dL Hct (34.0-46.0) % MCV (80.0-100.0) fL MCH (25.0-35.0) pg MCHC (31.0-37.0) g/dL RDW (11.5-15.5) % Plt Count (150-450) k/uL Neutrophils % % Lymphocytes % % Monocytes % % Eosinophils % % Basophils % % Neutrophils # (1.3-7.7) k/uL Lymphocytes # (1.0-4.8) k/uL Monocytes # (0-1.0) k/uL Eosinophils # (0-0.7) k/uL Basophils # (0-0.2) k/uL Sodium (137-145) mmol/L Potassium (3.5-5.1) mmol/L Chloride (98-107) mmol/L Carbon Dioxide (22-30) mmol/L Anion Gap mmol/L BUN (7-17) mg/dL Creatinine (0.52-1.04) mg/dL Est GFR (CKD-EPI)AfAm (>60 ml/min/1.73 sqM) Est GFR (CKD-EPI)NonAf (>60 ml/min/1.73 sqM) Glucose (74-99) mg/dL Calcium (8.4-10.2) mg/dL Total Bilirubin (0.2-1.3) mg/dL AST (14-36) U/L ALT (9-52) U/L Alkaline Phosphatase (38-126) U/L Total Protein (6.3-8.2) g/dL Albumin (3.5-5.0) g/dL Urine Color Yellow Urine Appearance Clear (Clear) Urine pH 6.0 (5.0-8.0) Ur Specific [place] 1.008 (1.001-1.035) Urine Protein Negative (Negative) Urine Glucose (UA) Negative (Negative) Urine Ketones Negative (Negative) Urine Blood Negative (Negative) Urine Nitrite Negative (Negative) Urine Bilirubin Negative (Negative) Urine Urobilinogen <2.0 (<2.0) mg/dL Ur Leukocyte Esterase Small H (Negative) Urine WBC 27 H (0-5) /hpf Ur Squamous Epith Cells 2 (0-4) /hpf Amorphous Sediment Rare H (None) /hpf Urine Bacteria Rare H (None) /hpf Hyaline Casts 21 H (0-2) /lpf Urine Mucus Few H (None) /hpf Urine HCG, Qual (Not Detectd) Hepatitis A IgM Ab NEGATIVE Trichomonas Ag (Rapid) Positive H (Negative) Disposition Clinical Impression: Trichomonal infection Disposition: HOME SELF-CARE Condition: Good Instructions: Trichomoniasis (ED) Additional Instructions: Please use medication as discussed. Please follow-up with family doctor in the next 2 days. Please return to emergency room if the symptoms increase or worsen or for any other concerns. Is patient prescribed a controlled substance at d/c from ED?: No Referrals: Colton Yeung MD [Primary Care Provider] - 1-2 days Time of Disposition: 20:15
[2018-10-14 20:24] VITALS: BP 96/63; PULSE 115; RESP 18; TEMP 98.2
[2018-10-15 10:43] LABS: Hepatitis B Core IgM Non-Reactive (Non-Reactive)
[2018-10-15 11:28] LABS: HIV 1 AB Non-Reactive (Non-Reactive); HIV AB P24 Non-Reactive (Non-Reactive); HIV P24 AG Non-Reactive (Non-Reactive)
[2018-10-16 14:23] LABS: N. gonorrhoeae,PCR Negative (Neg,Equiv); Neisseria Source Vagina
[2018-10-16 14:24] LABS: C. trachomatis,PCR Negative (Neg,Equiv); Chlamydia trachomatis Source Vagina
== END 2018-10-14 20:28 | disposition home or self-care (01) ==
LOC: EC 16:24
DX: A59.9 Trichomoniasis, unspecified (principal); F41.0 Panic disorder [episodic paroxysmal anxiety]; F32.9 Major depressive disorder, single episode, unspecified; F17.200 Nicotine dependence, unspecified, uncomplicated; Z79.899 Other long term (current) drug therapy; Z90.710 Acquired absence of both cervix and uterus; Z90.49 Acquired absence of other specified parts of digestive tract; Z98.51 Tubal ligation status
CPT/HCPCS: 36415; 80053; 80074; 85025; 81001; 81025; 87808; 87491; 87591; 87070; 87086; 87205; 87390; 93975; 76856; 99284; 96372; J0696

== ENCOUNTER 2018-10-23 04:46 | Emergency (ER) | payer OTHER ==
[2018-10-23 04:55] VITALS: TEMP 98.3
[2018-10-23] MEDS ORDERED: SODIUM CHLORIDE 0.9% 1,000 ML IV STA (04:59)
[2018-10-23] MEDS ORDERED: ASPIRIN 81 MG PO STA (04:59)
[2018-10-23 06:06] LABS: Basophils % (A) 0 %; Eosinophils # (A) 0.2 k/uL (0-0.7); Eosinophils % (A) 1 %; HCT 46.5 % (34.0-46.0); HGB 15.9 gm/dL (11.4-16.0); Lymphocytes # (A) 1.5 k/uL (1.0-4.8); Lymphocytes % (A) 13 %; MCH 30.8 pg (25.0-35.0); MCHC 34.1 g/dL (31.0-37.0); MCV 90.5 fL (80.0-100.0); Mean Platelet Volume 6.3; Monocytes # (A) 0.5 k/uL (0-1.0); Monocytes % (A) 4 %; Neutrophils # (A) 8.8 k/uL (1.3-7.7); Neutrophils % (A) 80 %; Platelet Count 304 k/uL (150-450); RBC 5.14 m/uL (3.80-5.40); RDW 12.4 % (11.5-15.5)
[2018-10-23 06:13] LABS: ALT 25 U/L (9-52); AST 21 U/L (14-36); Acetaminophen <10.0 ug/mL; Albumin 4.4 g/dL (3.5-5.0); Alcohol <10 mg/dL; Alkaline Phosphatase 69 U/L (38-126); Anion Gap 9 mmol/L; Blood Urea Nitrogen 6 mg/dL (7-17); Calcium 9.7 mg/dL (8.4-10.2); Carbon Dioxide 25 mmol/L (22-30); Chloride 106 mmol/L (98-107); Glucose 89 mg/dL (74-99); Magnesium 2.2 mg/dL (1.6-2.3); Salicylate <1.0 mg/dL; Sodium 140 mmol/L (137-145); Total Bilirubin 0.7 mg/dL (0.2-1.3); Total Protein 7.2 g/dL (6.3-8.2)
[2018-10-23 06:21] LABS: D-Dimer 0.21 mg/L FEU (<0.60); Partial Thromboplastin Time 27.9 sec (22.0-30.0); Prothrombin Time 10.3 sec (9.0-12.0)
[2018-10-23 06:24] LABS: Creatine Kinase 70 U/L (30-135)
[2018-10-23 06:30] VITALS: BP 108/71; PULSE 86; RESP 11
[2018-10-23 06:37] LABS: Creatine Kinase MB <0.2 ng/mL (0.0-2.4); Troponin I <0.012 ng/mL (0.000-0.034)
--- NOTE | 2018-10-23 07:44 | ED ---
General Adult HPI - General Chief complaint: Chest Pain Stated complaint: Chest Pain Time Seen by Provider: 10/23/18 04:59 Source: patient, EMS Mode of arrival: EMS Limitations: no limitations - History of Present Illness Initial comments: Kylie is a 33 yo female who presents to the ED today for evaluation of multiple complaints. Patient reports she's been feeling very depressed lately, she states that over the past 8-9 days she has taken approximately 60 Flexeril and a handful of gabapentin. Patient reports she surprised she still alive because she has taken enough drugs to kill hoarse. Patient reports she woke from sleep this morning feeling nauseated, she vomited and then felt pain in her chest so she came to the ER for evaluation. Patient states she has an extensive psychiatric history and history of borderline personality disorder. She reports that she is open with [facility]. She reports that she has contacted multiple psychiatric facilities looking for inpatient care but doesn't want to feel walked up or walked inside hospital. She reports that she wants to go to a facility where she can walk around and smoke cigarettes but get mental health care which is why she hasn't come the hospital. She is here today because her estranged insisted she come for evaluation. does express concern that the patient has been depressed and taking her medication in excess last week but not in the past few days. He reports that he has been staying at her home to keep an eye on her. He wants her to get psychiatric evaluation however he is scared to petition her because he is worried she will retaliate and take away visitation of their children. - Related Data Home Medications Medication Instructions Recorded Confirmed Escitalopram [Lexapro] 20 mg PO HS 03/21/17 10/23/18 Cyclobenzaprine [Flexeril] 5 mg PO BID 07/04/18 10/23/18 Cyclobenzaprine [Flexeril] 10 mg PO HS 07/04/18 10/23/18 Gabapentin [Neurontin] 400 mg PO TID 07/04/18 10/23/18 Butalb/APAP/Caff 50-325-40Mg 1 tab PO Q8H PRN 07/25/18 10/23/18 [Fioricet 50-325-40] Previous Rx's Medication Instructions Recorded Albuterol Inhaler [Ventolin Hfa 2 puff INHALATION RT-Q6H PRN #1 07/05/18 Inhaler] inhaler Budesonide-Formot 160-4.5 Mcg 2 puff INHALATION RT-BID #1 inhaler 07/05/18 [Symbicort 160-4.5 Mcg Inhaler] Allergies Allergy/AdvReac Type Severity Reaction Status Date / Time No Known Allergies Allergy Verified 10/23/18 07:47 Review of Systems ROS Statement: Those systems with pertinent positive or pertinent negative responses have been documented in the HPI. ROS Other: All systems not noted in ROS Statement are negative. Past Medical History Past Medical History: Asthma, Coronary Artery Disease (CAD), Chest Pain / Angina , COPD Additional Past Medical History / Comment(s): Scoliosis, History of vaginal herpes (no outbreak at this time), migraines History of Any Multi-Drug Resistant Organisms: None Reported Past Surgical History: Section, Cholecystectomy, Hysterectomy, Tubal Ligation Additional Past Surgical History / Comment(s): D & C, x3 c-sections Past Anesthesia/Blood Transfusion Reactions: No Reported Reaction Additional Past Anesthesia/Blood Transfusion Reaction / Comment(s): states "takes alot of medication to be put under for pt and family members,has reall bad anxiety".No problems with prior blood transfusion. Past Psychological History: Anxiety, Depression, Panic Disorder, PTSD Smoking Status: Current every day smoker Past Alcohol Use History: Occasional Past Drug Use History: Marijuana - Past Family History Mother Family Medical History: Diabetes Mellitus, Hypertension Father Additional Family Medical History / Comment(s): had physical and mental disabilities at age 46. Father Brother(s) Family Medical History: Diabetes Mellitus, Hypertension General Exam - General Exam Comments Initial Comments: Physical Exam GENERAL: Patient is well-developed and well-nourished. Patient is nontoxic and well- hydrated and is in no distress. HENT: Normocephalic, Atraumatic. EYES: PERRL, EOMI PULMONARY: Unlabored respirations. No audible rales rhonchi or wheezing was noted. CARDIOVASCULAR: There is a regular rate and rhythm without any murmurs gallops or rubs. ABDOMEN: Soft and nontender with normal bowel sounds. SKIN: Skin is clear with no lesions or rashes and otherwise unremarkable. : Deferred NEUROLOGIC: Patient is alert and oriented x3. Moving all extremities spontaneously MUSCULOSKELETAL: Normal extremities with adequate strength and full range of motion. No lower extremity swelling or edema. No calf tenderness. PSYCHIATRIC: Depressed, agitated, not actively suicidal Limitations: no limitations Limitations: no limitations Course Vital Signs 10/23/18 10/23/18 10/23/18 04:53 05:00 06:00 Temperature 98.3 F Pulse Rate 108 H 86 86 Respiratory 20 18 11 L Rate Blood Pressure 111/78 111/78 108/71 O2 Sat by Pulse 100 100 98 Oximetry EKG Findings - EKG Comments: EKG Findings:: EKG obtained at 4:55 AM, rate is 99 rhythm is sinus, normal axis , normal intervals, there are no acute ST elevations or depressions no evidence of acute ischemia or infarction. There are Q waves present in the inferior leads. Medical Decision Making - Medical Decision Making The patient was seen and evaluated, initially she complained only of left-sided in epigastric chest pain after vomiting episode. However when her arrived at bedside he did encourage her to advise that she had been intentionally overdosing on Flexeril and gabapentin and today woke up vomiting Additional labs for ingestion were ordered EPS notified at 5:30am - patient not intoxicated, is medically cleared for psychiatric evaluation at this time refusing to petitione the patient because he is concerned that she will retaliate against him Cardiac workup unremarkable - trop and d-dimer negative, CBM, CMP unremarkable Patient declined CXR Patient evaluated by EPS who chose not to petition the patient Patient agitated, states that this hospital will not offer her anything she cannot get from her follow up with [facility]. Will follow up as scheduled. Patient left AMA. - Lab Data Result diagrams: 10/23/18 04:50 10/23/18 04:50 Lab Results 10/23/18 10/23/18 10/23/18 Range/Units 04:50 04:50 04:50 WBC 11.0 H (3.8-10.6) k/uL RBC 5.14 (3.80-5.40) m/uL Hgb 15.9 (11.4-16.0) gm/dL Hct 46.5 H (34.0-46.0) % MCV 90.5 (80.0-100.0) fL MCH 30.8 (25.0-35.0) pg MCHC 34.1 (31.0-37.0) g/dL RDW 12.4 (11.5-15.5) % Plt Count 304 (150-450) k/uL Neutrophils % 80 % Lymphocytes % 13 % Monocytes % 4 % Eosinophils % 1 % Basophils % 0 % Neutrophils # 8.8 H (1.3-7.7) k/uL Lymphocytes # 1.5 (1.0-4.8) k/uL Monocytes # 0.5 (0-1.0) k/uL Eosinophils # 0.2 (0-0.7) k/uL Basophils # 0.0 (0-0.2) k/uL PT (9.0-12.0) sec INR (<1.2) APTT (22.0-30.0) sec D-Dimer (<0.60) mg/L FEU Sodium 140 (137-145) mmol/L Potassium 4.0 (3.5-5.1) mmol/L Chloride 106 (98-107) mmol/L Carbon Dioxide 25 (22-30) mmol/L Anion Gap 9 mmol/L BUN 6 L (7-17) mg/dL Creatinine 0.70 (0.52-1.04) mg/dL Est GFR (CKD-EPI)AfAm >90 (>60 ml/min/1.73 sqM) Est GFR (CKD-EPI)NonAf >90 (>60 ml/min/1.73 sqM) Glucose 89 (74-99) mg/dL Calcium 9.7 (8.4-10.2) mg/dL Magnesium 2.2 (1.6-2.3) mg/dL Total Bilirubin 0.7 (0.2-1.3) mg/dL AST 21 (14-36) U/L ALT 25 (9-52) U/L Alkaline Phosphatase 69 (38-126) U/L Total Creatine Kinase 70 (30-135) U/L CK-MB (CK-2) <0.2 (0.0-2.4) ng/mL CK-MB (CK-2) Rel Index Troponin I <0.012 (0.000-0.034) ng/mL NT-Pro-B Natriuret Pep pg/mL Total Protein 7.2 (6.3-8.2) g/dL Albumin 4.4 (3.5-5.0) g/dL Salicylates <1.0 mg/dL Acetaminophen <10.0 ug/mL Serum Alcohol <10 mg/dL 10/23/18 10/23/18 Range/Units 04:50 04:50 WBC (3.8-10.6) k/uL RBC (3.80-5.40) m/uL Hgb (11.4-16.0) gm/dL Hct (34.0-46.0) % MCV (80.0-100.0) fL MCH (25.0-35.0) pg MCHC (31.0-37.0) g/dL RDW (11.5-15.5) % Plt Count (150-450) k/uL Neutrophils % % Lymphocytes % % Monocytes % % Eosinophils % % Basophils % % Neutrophils # (1.3-7.7) k/uL Lymphocytes # (1.0-4.8) k/uL Monocytes # (0-1.0) k/uL Eosinophils # (0-0.7) k/uL Basophils # (0-0.2) k/uL PT 10.3 (9.0-12.0) sec INR 1.0 (<1.2) APTT 27.9 (22.0-30.0) sec D-Dimer 0.21 (<0.60) mg/L FEU Sodium (137-145) mmol/L Potassium (3.5-5.1) mmol/L Chloride (98-107) mmol/L Carbon Dioxide (22-30) mmol/L Anion Gap mmol/L BUN (7-17) mg/dL Creatinine (0.52-1.04) mg/dL Est GFR (CKD-EPI)AfAm (>60 ml/min/1.73 sqM) Est GFR (CKD-EPI)NonAf (>60 ml/min/1.73 sqM) Glucose (74-99) mg/dL Calcium (8.4-10.2) mg/dL Magnesium (1.6-2.3) mg/dL Total Bilirubin (0.2-1.3) mg/dL AST (14-36) U/L ALT (9-52) U/L Alkaline Phosphatase (38-126) U/L Total Creatine Kinase (30-135) U/L CK-MB (CK-2) (0.0-2.4) ng/mL CK-MB (CK-2) Rel Index Troponin I (0.000-0.034) ng/mL NT-Pro-B Natriuret Pep <11 pg/mL Total Protein (6.3-8.2) g/dL Albumin (3.5-5.0) g/dL Salicylates mg/dL Acetaminophen ug/mL Serum Alcohol mg/dL Disposition Clinical Impression: Depression Disposition: Left Against Medical Advice Referrals: Colton Yeung MD [Primary Care Provider] - 1-2 days
== END 2018-10-23 08:36 | disposition left against medical advice (07) ==
LOC: EC 04:46
DX: F32.9 Major depressive disorder, single episode, unspecified (principal); R07.9 Chest pain, unspecified; R11.2 Nausea with vomiting, unspecified; R45.1 Restlessness and agitation; F41.9 Anxiety disorder, unspecified; F17.200 Nicotine dependence, unspecified, uncomplicated; Z90.49 Acquired absence of other specified parts of digestive tract; Z90.710 Acquired absence of both cervix and uterus; Z98.51 Tubal ligation status; Z79.899 Other long term (current) drug therapy
CPT/HCPCS: 99285; 96360; 36415; 93005; 85379; 83880; 80053; 82550; 82553; 83735; 84484; 85025; 85610; 85730; 83520 ×2; G0480; 80320

== ENCOUNTER 2019-08-24 17:01 | Emergency (ER) | payer BC, OTHER ==
[2019-08-24 17:07] VITALS: RESP 18
--- NOTE | 2019-08-24 17:33 | ED ---
General Adult HPI - General Chief complaint: Chest Pain Stated complaint: Leg pain Time Seen by Provider: 08/24/19 17:19 Source: patient Mode of arrival: ambulatory Limitations: no limitations - History of Present Illness Initial comments: Dictation was produced using [employer] dictation software. please excuse any grammatical, word or spelling errors. Chief Complaint: 34-year-old female presents with right calf pain and chest pain and shortness of breath. History of Present Illness: She is a 34-year-old female she reports that she has a history of COPD. Over the last 4 days she's been having Pain, shortness of breath and chest pain. Patient states that she has history of COPD. She talked to a family friend about her symptoms and was told to come to the emergency department to be evaluated. Patient states she's been having Tenderness and popliteal pain over the last 4 days. States her pain is worse with plantar flexion. Denies any medial thigh pain. Patient states that 2 days ago she began having worsening shortness of breath that she initially attribute it to her COPD. Patient also has some sharp stabbing chest pain localized to the left anterior chest. He states that intermittent. Nonpleuritic. Denies any radiation of her symptoms. Patient has a history of blood clots. She has history of hysterectomy. The ROS documented in this emergency department record has been reviewed and confirmed by me. Those systems with pertinent positive or negative responses have been documented in the HPI. All other systems are other negative and/or noncontributory. PHYSICAL EXAM: General Impression: Alert and oriented x3, not in acute distress HEENT: Normocephalic atraumatic, extra-ocular movements intact, pupils equal and reactive to light bilaterally, mucous membranes moist. Cardiovascular: Heart regular rate and rhythm, S1&S2 audible, no murmurs, rubs or gallops Chest: Lungs clear to auscultation bilaterally, no rhonchi, no wheeze, no rales Abdomen: Bowel sounds present, abdomen soft, non-tender, non-distended, no organomegaly Musculoskeletal: Pulses present and equal in all extremities, no peripheral edema, no asymmetrical leg swelling, tenderness to palpation over the proximal And lateral popliteal area Motor: no focal deficits noted Neurological: CN II-XII grossly intact, no focal motor or sensory deficits noted Skin: Intact with no visualized rashes Psych: Normal affect and mood ED course: 34-year-old female presents with symptoms concerning for pulmonary embolus. Signs upon arrival shows heart rate 95, respiratory signs within acceptable limits. Laboratory evaluation obtained. CBC, coag panel, metabolic panel is unremarkable. Troponin is normal. CT angios the chest is unremarkable. Venous Doppler of the right lower extremity is negative. Patient observed in emergency department with stable clinical condition. She is currently pain-free. Discussed he signs with patient. Patient is agreeable for discharge. Patient given referral for gastroenterology for outpatient management of her recently Crohn's disease. EKG interpretation: Ventricular rate 98, normal sinus rhythm,. Interval 136, care is 84, QTC 431. No VT prolongation, no QTC prolongation, no ST or T-wave changes noted. Overall, this EKG is unremarkable - Related Data Home Medications Medication Instructions Recorded Confirmed Escitalopram [Lexapro] 20 mg PO HS 03/21/17 10/23/18 Cyclobenzaprine [Flexeril] 5 mg PO BID 07/04/18 10/23/18 Cyclobenzaprine [Flexeril] 10 mg PO HS 07/04/18 10/23/18 Gabapentin [Neurontin] 400 mg PO TID 07/04/18 10/23/18 Butalb/APAP/Caff 50-325-40Mg 1 tab PO Q8H PRN 07/25/18 10/23/18 [Fioricet 50-325-40] Previous Rx's Medication Instructions Recorded Albuterol Inhaler [Ventolin Hfa 2 puff INHALATION RT-Q6H PRN #1 07/05/18 Inhaler] inhaler Budesonide-Formot 160-4.5 Mcg 2 puff INHALATION RT-BID #1 inhaler 07/05/18 [Symbicort 160-4.5 Mcg Inhaler] Allergies Allergy/AdvReac Type Severity Reaction Status Date / Time No Known Allergies Allergy Verified 08/24/19 17:03 Review of Systems ROS Statement: Those systems with pertinent positive or pertinent negative responses have been documented in the HPI. ROS Other: All systems not noted in ROS Statement are negative. 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 Past Psychological History: Anxiety, Depression, Panic Disorder, PTSD Smoking Status: Current every day smoker Past Alcohol Use History: Occasional Past Drug Use History: Marijuana - Past Family History Mother Family Medical History: Diabetes Mellitus, Hypertension Father Additional Family Medical History / Comment(s): had physical and mental disabilities at age 46. Father Brother(s) Family Medical History: Diabetes Mellitus, Hypertension General Exam Limitations: no limitations Course Vital Signs 08/24/19 17:03 Temperature 97.9 F Pulse Rate 95 Respiratory 18 Rate Blood Pressure 112/73 O2 Sat by Pulse 100 Oximetry Medical Decision Making - Lab Data Result diagrams: 08/24/19 17:39 08/24/19 17:39 Lab Results 08/24/19 08/24/19 08/24/19 Range/Units 17:39 17:39 17:39 WBC 9.2 (3.8-10.6) k/uL RBC 4.56 (3.80-5.40) m/uL Hgb 14.6 (11.4-16.0) gm/dL Hct 40.8 (34.0-46.0) % MCV 89.6 (80.0-100.0) fL MCH 32.1 (25.0-35.0) pg MCHC 35.8 (31.0-37.0) g/dL RDW 11.9 (11.5-15.5) % Plt Count 249 (150-450) k/uL Neutrophils % 71 % Lymphocytes % 21 % Monocytes % 4 % Eosinophils % 1 % Basophils % 1 % Neutrophils # 6.6 (1.3-7.7) k/uL Lymphocytes # 1.9 (1.0-4.8) k/uL Monocytes # 0.4 (0-1.0) k/uL Eosinophils # 0.1 (0-0.7) k/uL Basophils # 0.1 (0-0.2) k/uL PT 10.5 (9.0-12.0) sec INR 1.0 (<1.2) APTT 27.3 (22.0-30.0) sec Sodium 139 (137-145) mmol/L Potassium 3.8 (3.5-5.1) mmol/L Chloride 105 (98-107) mmol/L Carbon Dioxide 25 (22-30) mmol/L Anion Gap 9 mmol/L BUN 10 (7-17) mg/dL Creatinine 0.69 (0.52-1.04) mg/dL Est GFR (CKD-EPI)AfAm >90 (>60 ml/min/1.73 sqM) Est GFR (CKD-EPI)NonAf >90 (>60 ml/min/1.73 sqM) Glucose 72 L (74-99) mg/dL Calcium 9.7 (8.4-10.2) mg/dL Troponin I (0.000-0.034) ng/mL 08/24/19 Range/Units 17:39 WBC (3.8-10.6) k/uL RBC (3.80-5.40) m/uL Hgb (11.4-16.0) gm/dL Hct (34.0-46.0) % MCV (80.0-100.0) fL MCH (25.0-35.0) pg MCHC (31.0-37.0) g/dL RDW (11.5-15.5) % Plt Count (150-450) k/uL Neutrophils % % Lymphocytes % % Monocytes % % Eosinophils % % Basophils % % Neutrophils # (1.3-7.7) k/uL Lymphocytes # (1.0-4.8) k/uL Monocytes # (0-1.0) k/uL Eosinophils # (0-0.7) k/uL Basophils # (0-0.2) k/uL PT (9.0-12.0) sec INR (<1.2) APTT (22.0-30.0) sec Sodium (137-145) mmol/L Potassium (3.5-5.1) mmol/L Chloride (98-107) mmol/L Carbon Dioxide (22-30) mmol/L Anion Gap mmol/L BUN (7-17) mg/dL Creatinine (0.52-1.04) mg/dL Est GFR (CKD-EPI)AfAm (>60 ml/min/1.73 sqM) Est GFR (CKD-EPI)NonAf (>60 ml/min/1.73 sqM) Glucose (74-99) mg/dL Calcium (8.4-10.2) mg/dL Troponin I <0.012 (0.000-0.034) ng/mL Disposition Clinical Impression: Chest pain Disposition: HOME SELF-CARE Condition: Good Instructions (If sedation given, give patient instructions): Chest Pain (ED) Is patient prescribed a controlled substance at d/c from ED?: No Referrals: Abel Ramirez MD [STAFF PHYSICIAN] - 1-2 days Time of Disposition: 18:41
[2019-08-24 17:55] LABS: Basophils # (A) 0.1 k/uL (0-0.2); Basophils % (A) 1 %; Eosinophils # (A) 0.1 k/uL (0-0.7); Eosinophils % (A) 1 %; HCT 40.8 % (34.0-46.0); HGB 14.6 gm/dL (11.4-16.0); Lymphocytes # (A) 1.9 k/uL (1.0-4.8); Lymphocytes % (A) 21 %; MCH 32.1 pg (25.0-35.0); MCHC 35.8 g/dL (31.0-37.0); MCV 89.6 fL (80.0-100.0); Mean Platelet Volume 5.8; Monocytes # (A) 0.4 k/uL (0-1.0); Monocytes % (A) 4 %; Neutrophils # (A) 6.6 k/uL (1.3-7.7); Neutrophils % (A) 71 %; Platelet Count 249 k/uL (150-450); RBC 4.56 m/uL (3.80-5.40); RDW 11.9 % (11.5-15.5); WBC 9.2 k/uL (3.8-10.6)
[2019-08-24 18:04] LABS: Partial Thromboplastin Time 27.3 sec (22.0-30.0); Prothrombin Time 10.5 sec (9.0-12.0)
[2019-08-24 18:12] LABS: African American GFR (CKD) >90 (>60 ml/min/1.73 sqM); Anion Gap 9 mmol/L; Blood Urea Nitrogen 10 mg/dL (7-17); Calcium 9.7 mg/dL (8.4-10.2); Carbon Dioxide 25 mmol/L (22-30); Chloride 105 mmol/L (98-107); Glucose 72 mg/dL (74-99); Potassium 3.8 mmol/L (3.5-5.1); Sodium 139 mmol/L (137-145)
--- NOTE | 2019-08-24 18:19 | CT ---
EXAMINATION TYPE: CT angio chest DATE OF EXAM: 08/24/2019 6:02 PM COMPARISON: None HISTORY: chest and bilateral leg pain CT DLP: 244 mGycm Automated exposure control for dose reduction was used. CONTRAST: CTA scan of the thorax is performed with IV Contrast, patient injected with 77cc mL of Isovue 370, pu lmonary embolism protocol. There are 3-D post processed images.. FINDINGS: The lungs are clear of infiltrate. There is no pleural effusion. The heart is normal. There is no per icardial effusion. There are no hilar masses. There is no mediastinal adenopathy. The thoracic aorta appears normal. The re is no aneurysm or dissection. There is normal contrast opacification of the pulmonary arteries. Th ere are no filling defects. IMPRESSION: NEGATIVE EXAM. NO EVIDENCE OF PULMONARY EMBOLISM.
--- NOTE | 2019-08-24 18:34 | US ---
EXAMINATION TYPE: US venous doppler duplex LE RT DATE OF EXAM: 08/24/2019 6:21 PM COMPARISON: NONE CLINICAL HISTORY: popliteal pain and calf pain. SIDE PERFORMED: Right TECHNIQUE: The lower extremity deep venous system is examined utilizing real time linear array sonog cassidy with graded compression, doppler sonography and color-flow sonography. VESSELS IMAGED: External Iliac Vein (EIV) Common Femoral Vein Deep Femoral Vein Greater Saphenous Vein * Femoral Vein Popliteal Vein Small Saphenous Vein * Proximal Calf Veins (* superficial vessels) Right Leg: Negative for DVT IMPRESSION: No evidence of deep venous thrombosis in the right leg.
[2019-08-24 19:01] VITALS: BP 122/74; PULSE 68; TEMP 97.7
== END 2019-08-24 18:59 | disposition home or self-care (01) ==
LOC: EC 17:01
DX: R07.9 Chest pain, unspecified (principal); M79.661 Pain in right lower leg; R06.02 Shortness of breath; I25.119 Atherosclerotic heart disease of native coronary artery with unspecified angina pectoris; F41.0 Panic disorder [episodic paroxysmal anxiety]; F32.9 Major depressive disorder, single episode, unspecified; F17.200 Nicotine dependence, unspecified, uncomplicated; Z79.899 Other long term (current) drug therapy
CPT/HCPCS: 36415; 93005; 80048; 84484; 85025; 85610; 85730; 93971; 71275; 99285; Q9967

== ENCOUNTER 2019-11-06 12:28 | Emergency (ER) | payer BC, OTHER ==
[2019-11-06 12:45] VITALS: TEMP 98.4
[2019-11-06] MEDS ORDERED: SODIUM CHLORIDE 0.9% 1,000 ML IV STA (12:52)
[2019-11-06] MEDS ORDERED: AZITHROMYCIN 500 MG in SODIUM CHLORIDE 0.9% 250 ML IVPB STA (12:54)
[2019-11-06] MEDS ORDERED: IPRATROPIUM-ALBUTEROL 3 ML NEB INHALATION PRN (12:55)
[2019-11-06] MEDS ORDERED: methylPREDNISolone SOD SUCCI 125 MG/2 ML VIAL IV STA (12:55)
[2019-11-06] MEDS ORDERED: IPRATROPIUM-ALBUTEROL 3 ML NEB INHALATION STA (12:55)
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
[2019-11-06 13:32] LABS: Basophils # (A) 0.1 k/uL (0-0.2); Basophils % (A) 1 %; Eosinophils # (A) 0.1 k/uL (0-0.7); Eosinophils % (A) 1 %; HCT 41.4 % (34.0-46.0); HGB 13.9 gm/dL (11.4-16.0); Lymphocytes # (A) 1.2 k/uL (1.0-4.8); Lymphocytes % (A) 14 %; MCH 30.9 pg (25.0-35.0); MCHC 33.5 g/dL (31.0-37.0); MCV 92.1 fL (80.0-100.0); Mean Platelet Volume 7.1; Monocytes # (A) 0.4 k/uL (0-1.0); Monocytes % (A) 5 %; Neutrophils # (A) 6.9 k/uL (1.3-7.7); Neutrophils % (A) 79 %; Platelet Count 239 k/uL (150-450); RBC 4.49 m/uL (3.80-5.40); RDW 12.1 % (11.5-15.5); WBC 8.7 k/uL (3.8-10.6)
[2019-11-06] MEDS ORDERED: SODIUM CHLORIDE 0.9% 1,000 ML IV ONE (13:40)
[2019-11-06 13:43] LABS: ALT 15 U/L (4-34); AST 22 U/L (14-36); African American GFR (CKD) >90 (>60 ml/min/1.73 sqM); Albumin 4.3 g/dL (3.5-5.0); Alkaline Phosphatase 67 U/L (38-126); Amylase 43 U/L (30-110); Anion Gap 9 mmol/L; Blood Urea Nitrogen 7 mg/dL (7-17); Calcium 9.3 mg/dL (8.4-10.2); Carbon Dioxide 23 mmol/L (22-30); Chloride 108 mmol/L (98-107); Glucose 97 mg/dL (74-99); Non-African American GFR(CKD) >90 (>60 ml/min/1.73 sqM); Potassium 3.7 mmol/L (3.5-5.1); Sodium 140 mmol/L (137-145); Total Bilirubin 0.8 mg/dL (0.2-1.3); Total Protein 6.9 g/dL (6.3-8.2)
--- NOTE | 2019-11-06 14:24 | XR ---
EXAMINATION TYPE: XR abdomen acute w cxr DATE OF EXAM: 11/06/2019 COMPARISON: NONE HISTORY: Epigastric pain TECHNIQUE: Frontal view of the chest and Supine and upright views of the abdomen are obtained. FINDINGS: Lungs are clear. No pneumothorax or overt failure. Curvature of the spine noted. Heart size normal. Bowel gas pattern nonspecific. No diagnostic evidence of obstruction. Surgical clips in the right upp er quadrant. IMPRESSION: Unremarkable study
[2019-11-06] MEDS ORDERED: MORPHINE SULFATE 4 MG/ML SYRINGE IVP STA (14:28)
[2019-11-06 14:36] VITALS: RESP 18
[2019-11-06 15:32] LABS: Appearance,Urine Clear (Clear); Bilirubin,Urine Negative (Negative); Blood,Urine Negative (Negative); Color,Urine Yellow; Glucose,Urine (UA) Negative (Negative); Ketones,Urine 1+ (Negative); Leukocyte Esterase,Urine Negative (Negative); Nitrite,Urine Negative (Negative); Protein,Urine Negative (Negative); Specific Gravity,Urine 1.008 (1.001-1.035); Urobilinogen,Urine <2.0 mg/dL (<2.0)
--- NOTE | 2019-11-06 16:22 | CT ---
EXAMINATION TYPE: CT abdomen pelvis w con DATE OF EXAM: 11/06/2019 HISTORY: Generalized pain with N/V/D. CT DLP: 717.5mGycm Automated Exposure Control for Dose Reduction was Utilized. CONTRAST: CT scan of the abdomen and pelvis is performed without oral but with IV Contrast, patient injected wi th 100 mL of Isovue 300. COMPARISON: CT December 23, 2014. FINDINGS: LUNG BASES: Tiny pericardial effusion right anterior-inferior aspect slightly larger from prior. LIVER/GB: Cholecystectomy clips are redemonstrated. PANCREAS: Asymmetric fullness distal pancreatic body similar to prior study without surrounding infla mmatory change. SPLEEN: No significant abnormality is seen. ADRENALS: No significant abnormality is seen. KIDNEYS: No significant abnormality is seen. BOWEL: Evaluation while suboptimal secondary to lack of enteric contrast. In addition patient has lit tle intra-abdominal fat making evaluation suboptimal. There is no suspicion of small or large bowel d ilatation. Stomach is poorly distended and thus suboptimally evaluated. Low-lying cecum into right pe lvis anteriorly. UTERUS/ADNEXA: Uterus surgically absent. Right ovary is 2.6 cm cystic lesion axial image 64 current s tudy. This is nonspecific and can be better evaluated and characterized with pelvic ultrasound if haylee ired. LYMPH NODES: No greater than 1cm abdominal or pelvic lymph nodes are appreciated. OSSEOUS STRUCTURES: Moderate to severe disc space narrowing left L5-S1 level. OTHER: Small umbilical hernia containing fat axial image 43. IMPRESSION: Suboptimal study without enteric contrast. No bowel obstruction. No suspicious acute find ings clearly seen.
[2019-11-06] MEDS ORDERED: SODIUM CHLORIDE 0.9% 500 ML 500 ML IV ONE (16:38)
[2019-11-06 16:42] VITALS: BP 104/78; PULSE 88
== END 2019-11-06 17:00 | disposition home or self-care (01) ==
LOC: EC 12:28
DX: R10.13 Epigastric pain (principal); R19.5 Other fecal abnormalities; R00.0 Tachycardia, unspecified; J44.9 Chronic obstructive pulmonary disease, unspecified; F41.9 Anxiety disorder, unspecified; F17.200 Nicotine dependence, unspecified, uncomplicated; Z79.51 Long term (current) use of inhaled steroids; Z79.899 Other long term (current) drug therapy; Z87.11 Personal history of peptic ulcer disease; Z86.69 Personal history of other diseases of the nervous system and sense organs; Z87.19 Personal history of other diseases of the digestive system; Z90.49 Acquired absence of other specified parts of digestive tract; Z53.8 Procedure and treatment not carried out for other reasons
CPT/HCPCS: 36415; 80053; 82150; 83690; 85025; 82272; 81003; 81025; 74022; 74177; 99284; 96374; 96361 ×2; J2270; Q9967

== ENCOUNTER 2019-11-21 16:38 | Emergency (ER) | payer BC, OTHER ==
[2019-11-21 16:48] VITALS: BP 113/75; PULSE 72; RESP 18; TEMP 98.3
[2019-11-21 17:27] LABS: Appearance,Urine Clear (Clear); Bilirubin,Urine Negative (Negative); Blood,Urine Negative (Negative); Color,Urine Yellow; Glucose,Urine (UA) Negative (Negative); Ketones,Urine Negative (Negative); Leukocyte Esterase,Urine Negative (Negative); Nitrite,Urine Negative (Negative); Protein,Urine Negative (Negative); Specific Gravity,Urine 1.009 (1.001-1.035); Urobilinogen,Urine <2.0 mg/dL (<2.0)
[2019-11-21] MEDS ORDERED: cefTRIAXone 250 MG VIAL IM STA (18:02)
[2019-11-21] MEDS ORDERED: AZITHROMYCIN 500 MG TAB PO STA (18:02)
[2019-11-21] MEDS ORDERED: cefTRIAXone IN SWFI 1,000 MG/10 ML SYRINGE IVP STA (18:11)
[2019-11-21 18:24] LABS: Basophils % (A) 1 %; Eosinophils # (A) 0.1 k/uL (0-0.7); Eosinophils % (A) 2 %; HCT 37.9 % (34.0-46.0); HGB 12.9 gm/dL (11.4-16.0); Lymphocytes # (A) 1.6 k/uL (1.0-4.8); Lymphocytes % (A) 21 %; MCH 31.3 pg (25.0-35.0); Mean Platelet Volume 7.3; Monocytes # (A) 0.2 k/uL (0-1.0); Monocytes % (A) 3 %; Neutrophils # (A) 5.7 k/uL (1.3-7.7); Neutrophils % (A) 73 %; Platelet Count 249 k/uL (150-450); RBC 4.12 m/uL (3.80-5.40); RDW 12.1 % (11.5-15.5); WBC 7.8 k/uL (3.8-10.6)
--- NOTE | 2019-11-21 18:27 | ED ---
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 Patient states she has had vaginal discharge for approximately 3 weeks. Patient states she is concerned this could be related to an STD. States that she was having sexual intercourse with a new partner about a month ago. Patient states that over the past week or 2 she started to have some mild pelvic pain. She denies fevers or chills. Patient states she did have Trichomonas about a year ago but that that was treated.Patient has no other complaints at this time including shortness of breath, chest pain, nausea or vomiting, headache, or visual changes. - Related Data Home Medications Medication Instructions Recorded Confirmed Gabapentin [Neurontin] 400 mg PO TID 07/04/18 11/20/19 Acetaminophen Tab [Tylenol] 650 mg PO Q6H PRN 11/20/19 11/20/19 Previous Rx's Medication Instructions Recorded Albuterol Inhaler [Ventolin Hfa 2 puff INHALATION RT-Q6H PRN #1 07/05/18 Inhaler] inhaler Doxycycline [Vibramycin] 100 mg PO BID #28 cap 11/21/19 Fluconazole [Diflucan] 150 mg PO ONCE #1 tab 11/21/19 Allergies Allergy/AdvReac Type Severity Reaction Status Date / Time No Known Allergies Allergy Verified 11/21/19 16:46 Review of Systems ROS Statement: Those systems with pertinent positive or pertinent negative responses have been documented in the HPI. ROS Other: All systems not noted in ROS Statement are negative. 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 Recent stomach ulcer. History of Any Multi-Drug Resistant Organisms: None Reported Past Surgical History: Section, Cholecystectomy, Hysterectomy, Tubal Ligation Additional Past Surgical History / Comment(s): D & C, x3 c-sections Past Anesthesia/Blood Transfusion Reactions: No Reported Reaction, Family History of Problems w/ Anesthesia Additional Past Anesthesia/Blood Transfusion Reaction / Comment(s): states "takes alot of medication to be put under for mother." No problems with prior blood transfusion. Past Psychological History: Anxiety, Depression, Panic Disorder, PTSD Smoking Status: Current every day smoker Past Alcohol Use History: None Reported Past Drug Use History: Marijuana - Past Family History Mother Family Medical History: Diabetes Mellitus, Hypertension Father Additional Family Medical History / Comment(s): had physical and mental disabilities at age 46. Father Brother(s) Family Medical History: Diabetes Mellitus, Hypertension General Exam Limitations: no limitations General appearance: alert, in no apparent distress Head exam: Present: atraumatic, normocephalic, normal inspection Eye exam: Present: normal appearance, PERRL, EOMI. Absent: scleral icterus, conjunctival injection, periorbital swelling ENT exam: Present: normal exam, mucous membranes moist Neck exam: Present: normal inspection, full ROM. Absent: tenderness, meningis mus, lymphadenopathy Respiratory exam: Present: normal lung sounds bilaterally. Absent: respiratory distress, wheezes, rales, rhonchi, stridor Cardiovascular Exam: Present: regular rate, normal rhythm, normal heart sounds. Absent: systolic murmur, diastolic murmur, rubs, gallop, clicks GI/Abdominal exam: Present: soft, normal bowel sounds. Absent: distended, tenderness, guarding, rebound, rigid External exam: Present: normal external exam. Absent: erythema, swelling, lesions, lacerations, ecchymosis Speculum exam: Present: cervical discharge (Patient having thick white cervical discharge). Absent: normal speculum exam, erythema, vaginal discharge, vaginal bleeding, foreign body, tissue, laceration By manual exam: Present: adnexal tenderness (bilat). Absent: cervical motion tenderness, adnexal mass, uterine enlargement Back exam: Absent: CVA tenderness (R), CVA tenderness (L) Course Vital Signs 11/21/19 16:46 Temperature 98.3 F Pulse Rate 72 Respiratory 18 Rate Blood Pressure 113/75 O2 Sat by Pulse 100 Oximetry Medical Decision Making - Medical Decision Making 34-year-old female presents for vaginal discharge. Patient is also had pelvic discomfort for the past week. Pelvic exam did reveal thick white vaginal discharge. No evidence of foreign body. No foul odor. CBC CMP unremarkable. Urinalysis negative. HCG not detected. Trichomonas was negative. Gonorrhea and chlamydia pending. Ultrasound was obtained which shows a right ovarian simple cyst. No definite acute process. At this time patient did want to be empirically treated for gonorrhea and chlamydia. She will also be treated with doxycycline. I did recommend she follow up with primary care and follow-up on culture results. She'll return here if she has any worsening symptoms. I discussed this case with attending Dr. Boswell who agrees with this assessment and treatment plan. - Lab Data Result diagrams: 11/21/19 17:26 11/21/19 17:26 Lab Results 11/21/19 11/21/19 11/21/19 Range/Units 16:55 16:55 17:15 WBC (3.8-10.6) k/uL RBC (3.80-5.40) m/uL Hgb (11.4-16.0) gm/dL Hct (34.0-46.0) % MCV (80.0-100.0) fL MCH (25.0-35.0) pg MCHC (31.0-37.0) g/dL RDW (11.5-15.5) % Plt Count (150-450) k/uL Neutrophils % % Lymphocytes % % Monocytes % % Eosinophils % % Basophils % % Neutrophils # (1.3-7.7) k/uL Lymphocytes # (1.0-4.8) k/uL Monocytes # (0-1.0) k/uL Eosinophils # (0-0.7) k/uL Basophils # (0-0.2) k/uL Sodium (137-145) mmol/L Potassium (3.5-5.1) mmol/L Chloride (98-107) mmol/L Carbon Dioxide (22-30) mmol/L Anion Gap mmol/L BUN (7-17) mg/dL Creatinine (0.52-1.04) mg/dL Est GFR (CKD-EPI)AfAm (>60 ml/min/1.73 sqM) Est GFR (CKD-EPI)NonAf (>60 ml/min/1.73 sqM) Glucose (74-99) mg/dL Calcium (8.4-10.2) mg/dL Total Bilirubin (0.2-1.3) mg/dL AST (14-36) U/L ALT (4-34) U/L Alkaline Phosphatase (38-126) U/L Total Protein (6.3-8.2) g/dL Albumin (3.5-5.0) g/dL Urine Color Yellow Urine Appearance Clear (Clear) Urine pH 7.0 (5.0-8.0) Ur Specific Hazel 1.009 (1.001-1.035) Urine Protein Negative (Negative) Urine Glucose (UA) Negative (Negative) Urine Ketones Negative (Negative) Urine Blood Negative (Negative) Urine Nitrite Negative (Negative) Urine Bilirubin Negative (Negative) Urine Urobilinogen <2.0 (<2.0) mg/dL Ur Leukocyte Esterase Negative (Negative) Urine HCG, Qual Not Detected (Not Detectd) Trichomonas Ag (Rapid) Negative (Negative) 11/21/19 11/21/19 Range/Units 17:26 17:26 WBC 7.8 (3.8-10.6) k/uL RBC 4.12 (3.80-5.40) m/uL Hgb 12.9 (11.4-16.0) gm/dL Hct 37.9 (34.0-46.0) % MCV 92.0 (80.0-100.0) fL MCH 31.3 (25.0-35.0) pg MCHC 34.0 (31.0-37.0) g/dL RDW 12.1 (11.5-15.5) % Plt Count 249 (150-450) k/uL Neutrophils % 73 % Lymphocytes % 21 % Monocytes % 3 % Eosinophils % 2 % Basophils % 1 % Neutrophils # 5.7 (1.3-7.7) k/uL Lymphocytes # 1.6 (1.0-4.8) k/uL Monocytes # 0.2 (0-1.0) k/uL Eosinophils # 0.1 (0-0.7) k/uL Basophils # 0.0 (0-0.2) k/uL Sodium 138 (137-145) mmol/L Potassium 4.0 (3.5-5.1) mmol/L Chloride 108 H (98-107) mmol/L Carbon Dioxide 24 (22-30) mmol/L Anion Gap 6 mmol/L BUN 4 L (7-17) mg/dL Creatinine 0.55 (0.52-1.04) mg/dL Est GFR (CKD-EPI)AfAm >90 (>60 ml/min/1.73 sqM) Est GFR (CKD-EPI)NonAf >90 (>60 ml/min/1.73 sqM) Glucose 88 (74-99) mg/dL Calcium 9.1 (8.4-10.2) mg/dL Total Bilirubin 0.5 (0.2-1.3) mg/dL AST 21 (14-36) U/L ALT 12 (4-34) U/L Alkaline Phosphatase 65 (38-126) U/L Total Protein 6.2 L (6.3-8.2) g/dL Albumin 3.9 (3.5-5.0) g/dL Urine Color Urine Appearance (Clear) Urine pH (5.0-8.0) Ur Specific Hazel (1.001-1.035) Urine Protein (Negative) Urine Glucose (UA) (Negative) Urine Ketones (Negative) Urine Blood (Negative) Urine Nitrite (Negative) Urine Bilirubin (Negative) Urine Urobilinogen (<2.0) mg/dL Ur Leukocyte Esterase (Negative) Urine HCG, Qual (Not Detectd) Trichomonas Ag (Rapid) (Negative) Disposition Clinical Impression: Vaginal discharge Disposition: HOME SELF-CARE Condition: Good Instructions (If sedation given, give patient instructions): Vaginal Discharge (ED) Additional Instructions: Please take antibiotic as directed. Please follow-up with primary care in 1-2 days. Follow up on culture results early next week. If symptoms are worsening or not improving return to the emergency department. Prescriptions: Fluconazole [Diflucan] 150 mg PO ONCE #1 tab Doxycycline [Vibramycin] 100 mg PO BID #28 cap Is patient prescribed a controlled substance at d/c from ED?: No Referrals: Amanda Guaman MD [REFERRING] - 1-2 days Time of Disposition: 20:01
[2019-11-21 18:38] LABS: ALT 12 U/L (4-34); AST 21 U/L (14-36); African American GFR (CKD) >90 (>60 ml/min/1.73 sqM); Albumin 3.9 g/dL (3.5-5.0); Alkaline Phosphatase 65 U/L (38-126); Anion Gap 6 mmol/L; Blood Urea Nitrogen 4 mg/dL (7-17); Calcium 9.1 mg/dL (8.4-10.2); Carbon Dioxide 24 mmol/L (22-30); Chloride 108 mmol/L (98-107); Glucose 88 mg/dL (74-99); Non-African American GFR(CKD) >90 (>60 ml/min/1.73 sqM); Sodium 138 mmol/L (137-145); Total Bilirubin 0.5 mg/dL (0.2-1.3); Total Protein 6.2 g/dL (6.3-8.2)
--- NOTE | 2019-11-21 19:35 | US ---
EXAMINATION TYPE: US transvaginal DATE OF EXAM: 11/21/2019 COMPARISON: CT 11/06/2019 CLINICAL HISTORY: pain TECHNIQUE: Transvaginal sonographic images of the pelvis were acquired. Date of LMP: Uterus surgically absent EXAM MEASUREMENTS: Uterus: Surgically absent Endometrial Stripe: Surgically absent Right Ovary: 4.5 x 3.3 x 3.2 cm Left Ovary: 2.0 x 1.4 x 1.3 cm 1. Uterus: Surgically absent 2. Endometrium: N/A 3. Right Ovary: Anechoic cyst measuring 3.3 x 2.2 x 2.5 cm 4. Left Ovary: wnl Spectral, color and waveform doppler imaging shows good arterial and venous flow within the ovaries ; there is no evidence for ovarian torsion. 5. Bilateral Adnexa: wnl 6. Posterior cul-de-sac: wnl IMPRESSION: 1. No definite acute process. 2. Right ovarian simple appearing cyst noted.
[2019-11-23 09:19] LABS: C. trachomatis,PCR Negative (Neg,Equiv); Chlamydia trachomatis Source Vagina
[2019-11-23 09:22] LABS: N. gonorrhoeae,PCR Negative (Neg,Equiv); Neisseria Source Vagina
== END 2019-11-21 20:20 | disposition home or self-care (01) ==
LOC: EC 16:38
DX: N89.8 Other specified noninflammatory disorders of vagina (principal); N83.201 Unspecified ovarian cyst, right side; F17.200 Nicotine dependence, unspecified, uncomplicated; Z90.49 Acquired absence of other specified parts of digestive tract; Z90.710 Acquired absence of both cervix and uterus; Z98.51 Tubal ligation status; Z79.899 Other long term (current) drug therapy
CPT/HCPCS: 36415; 80053; 85025; 81003; 81025; 87808; 87491; 87591; 87070; 93975; 76830; 99284; 96374; J0696

== ENCOUNTER 2019-11-22 11:00 | Day surgery (SDC) | payer BC, OTHER ==
[2019-11-20 10:45] VITALS: BMI 21.9
[~2019-11-22 11:00] MED LIST changes: +DEXAMETHASONE SOD PHOSPHATE 10 MG/ML 1 ML VIAL IV ONE; +LIDOCAINE 1% 20 ML VIAL (10MG/ML) FOR IV START INTRADERMA PRN; +ONDANSETRON 4 MG/2 ML VIAL IVP ONE; +SCOPOLAMINE 1.5MG/72HR PATCH TRANSDERM ONE
[2019-11-22 11:45] VITALS: RESP 16; TEMP 98.2
[2019-11-22] MEDS ORDERED: PROPOFOL 10 MG/ML 20 ML VIAL IV ONE (12:44)
--- NOTE | 2019-11-22 13:03 | P.PCN ---
Date of Procedure: 11/22/19 Procedure(s) Performed: BRIEF HISTORY: Patient is a 34-year-old pleasant white female scheduled for an elective colonoscopy as a part of evaluation of chronic was fundal diarrhea of several years duration. She CT of the abdomen and pelvis done in April of and that showed thickening of the left colon. PROCEDURE PERFORMED: Colonoscopy with random biopsies. PREOPERATIVE DIAGNOSIS: Chronic postprandial diarrhea and abdominal pain. IV sedation per Anesthesia. PROCEDURE: After informed consent was obtained, the patient, was brought into the endoscopy unit. IV sedation was administered by Anesthesia under continuous monitoring. Digital rectal examination was normal. Initially the Olympus CF-160 flexible video colonoscope was then inserted in the rectum, gradually advanced into the cecum without any difficulty. Careful examination was performed as the scope was gradually being withdrawn. Ileocecal valve and the appendiceal orifice were visualized and appeared normal. Prep was excellent. Terminal ileum was normal. Biopsies were done from this area. Mucosa of the cecum, ascending colo n, transverse colon, descending colon, sigmoid colon, and rectum appeared normal. Biopsies were done from ascending and descending colon to rule out metastatic/collagenous colitis. Retroflexion was performed in the rectum and no lesions were seen. The patient tolerated the procedure well. IMPRESSION: Normal-appearing colon from rectum to cecum with no evidence of colitis or colorectal neoplasia Normal-appearing terminal ileum RECOMMENDATIONS: Findings of this examination were discussed with the patient his as well as a family. She was advised to follow with the biopsy results and she'll be seen in office in 2-3 weeks.
[2019-11-22] MEDS ORDERED: HYDROmorphone 0.5 MG/0.5 ML SYRINGE IVP ONE (13:25)
[2019-11-22 13:49] VITALS: BP 94/72; PULSE 65
== END 2019-11-22 14:14 | disposition home or self-care (01) ==
LOC: ORWHC2ENDO 11:00
PROVIDERS: ATTEND Internal Medicine Gastroenterology
DX: K52.89 Other specified noninfective gastroenteritis and colitis (principal); I25.10 Atherosclerotic heart disease of native coronary artery without angina pectoris; J44.9 Chronic obstructive pulmonary disease, unspecified; F17.200 Nicotine dependence, unspecified, uncomplicated; Z79.2 Long term (current) use of antibiotics; Z79.899 Other long term (current) drug therapy
CPT/HCPCS: 88305; 45380; J2704; J1170

== ENCOUNTER 2022-01-02 18:31 | Emergency (ER) | payer OTHER ==
[2022-01-02 18:44] VITALS: BP 110/67; PULSE 88; RESP 16; TEMP 98
[2022-01-02] MEDS ORDERED: KETOROLAC 15 MG/ML 1 ML VIAL IM STA (18:58)
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
== END 2022-01-02 20:54 | disposition home or self-care (01) ==
LOC: EC 18:31
DX: S63.501A Unspecified sprain of right wrist, initial encounter (principal); S46.811A Strain of other muscles, fascia and tendons at shoulder and upper arm level, right arm, initial encounter; S50.11XA Contusion of right forearm, initial encounter; J45.909 Unspecified asthma, uncomplicated; F17.200 Nicotine dependence, unspecified, uncomplicated; W50.2XXA Accidental twist by another person, initial encounter
CPT/HCPCS: 73030; 73090; 73110; 99283; 96372; J1885

== ENCOUNTER → 2022-08-17 | Outpatient (CLI) | payer OTHER ==
[2022-08-17 22:49] LABS: Basophils # (A) 0.03 X 10*3/uL (0.00-0.10); Basophils % (A) 0.3 %; Eosinophils # (A) 0.03 X 10*3/uL (0.04-0.35); Eosinophils % (A) 0.3 %; HCT 45.3 % (37.2-46.3); HGB 14.7 g/dL (12.0-15.0); Immature Grans, Automated 0.4 %; Lymphocytes # (A) 0.99 X 10*3/uL (0.90-5.00); Lymphocytes % (A) 9.9 %; MCH 30.8 pg (27.0-32.0); MCHC 32.5 g/dL (32.0-37.0); Mean Platelet Volume 9.3 fL (9.5-12.2); Monocytes # (A) 0.67 X 10*3/uL (0.20-1.00); Monocytes % (A) 6.7 %; NRBC Per 100 WBC 0 /100 WBCS (0.0-0.0); Neutrophils # (A) 8.19 X 10*3/uL (1.80-7.70); Neutrophils % (A) 82.4 %; Platelet Count 279 X 10*3/uL (140-440); RBC 4.77 X 10*6/uL (4.10-5.20); RDW 11.9 % (11.5-14.5); WBC 9.95 X 10*3/uL (4.50-10.00)
[2022-08-17 23:45] LABS: ALT 16 U/L (8-44); AST 14 U/L (13-35); African American GFR (CKD) 131.7 (60.0-200.0); Albumin 4.6 g/dL (3.8-4.9); Albumin/Globulin Ratio 2.13 (1.60-3.17); Alkaline Phosphatase 75 U/L (41-126); BUN/Creat Ratio 9.51 Ratio (12.00-20.00); Blood Urea Nitrogen 6.4 mg/dL (9.0-27.0); Calcium 9.9 mg/dL (8.7-10.3); Carbon Dioxide 25.2 mmol/L (20.0-27.5); Chloride 102 mmol/L (96-109); Globulin 2.2 g/dL (1.6-3.3); Glucose 90 mg/dL (70-110); Non-African American GFR(CKD) 113.7 (60.0-200.0); Potassium 4.5 mmol/L (3.5-5.5); Rheumatoid Factor, Qnt <10 IU/mL (0-15); Sodium 138 mmol/L (135-145); Total Protein 6.7 g/dL (6.2-8.2)
== END | disposition home or self-care (01) ==
LOC: LABWHC1 15:18
PROVIDERS: ATTEND Psychiatry & Neurology Neurology
DX: G43.019 Migraine without aura, intractable, without status migrainosus (principal); E53.9 Vitamin B deficiency, unspecified; R42 Dizziness and giddiness; E55.9 Vitamin D deficiency, unspecified; R20.8 Other disturbances of skin sensation; M54.81 Occipital neuralgia; I49.9 Cardiac arrhythmia, unspecified
CPT/HCPCS: 36415; 80053; 82306; 82607; 84207; 85025; 86038; 86431; 93005

== ENCOUNTER 2023-05-05 15:38 | Emergency (ER) | payer OTHER ==
[2023-05-05 16:52] VITALS: TEMP 98.1
[2023-05-05 16:59] LABS: Basophils % (A) 0 %; Eosinophils # (A) 0.1 k/uL (0-0.7); Eosinophils % (A) 1 %; HCT 41.5 % (34.0-46.0); HGB 13.7 gm/dL (11.4-16.0); Lymphocytes # (A) 1.9 k/uL (1.0-4.8); Lymphocytes % (A) 20 %; MCH 31.2 pg (25.0-35.0); MCV 94.3 fL (80.0-100.0); Mean Platelet Volume 7.3; Monocytes # (A) 0.5 k/uL (0-1.0); Monocytes % (A) 5 %; Neutrophils # (A) 7.1 k/uL (1.3-7.7); Neutrophils % (A) 73 %; Platelet Count 236 k/uL (150-450); RDW 12.1 % (11.5-15.5); WBC 9.7 k/uL (3.8-10.6)
[2023-05-05 17:00] LABS: Appearance,Urine Clear (Clear); Bilirubin,Urine Negative (Negative); Blood,Urine Negative (Negative); Color,Urine Yellow; Glucose,Urine (UA) Negative (Negative); Ketones,Urine Negative (Negative); Leukocyte Esterase,Urine Negative (Negative); Nitrite,Urine Negative (Negative); Protein,Urine Negative (Negative); Specific Gravity,Urine 1.004 (1.001-1.035); Urobilinogen,Urine <2.0 mg/dL (<2.0)
--- NOTE | 2023-05-05 17:00 | ED ---
General Adult HPI - General Chief complaint: Abdominal Pain Stated complaint: Abd pain/cramping Time Seen by Provider: 05/05/23 16:04 Source: patient, RN notes reviewed Mode of arrival: ambulatory Limitations: no limitations - History of Present Illness Initial comments: 38-year-old female with no significant past medical history presents to the emergency department with chief complaint of left lower quadrant abdominal pain. Patient reports that she has had worsening left lower quadrant pain for the last day. She is reporting accompanying symptoms of nausea and vomiting and feeling bloated for the last 2 weeks. She is also complaining of her breasts "lactating." She denies any recent sick contacts. Last bowel movement was this morning and normal for her. Denies known fevers, chills, cough, sore throat, chest pain, shortness of breath, dysuria, hematuria, vaginal bleeding, vaginal cramping. - Related Data Home Medications Medication Instructions Recorded Confirmed Aspirin/Acetaminophen/Caffeine 3 tab PO DAILY PRN 05/05/23 05/05/23 [Excedrin Migraine Caplet] atenoloL 25 mg PO DAILY@1200 05/05/23 05/05/23 Previous Rx's Medication Instructions Recorded Ibuprofen [Motrin] 800 mg PO Q8HR PRN #30 tab 05/05/23 Lidocaine 5% Patch [Lidoderm 5% 1 patch TOPICAL DAILY #7 patch 05/05/23 Patch] Allergies Allergy/AdvReac Type Severity Reaction Status Date / Time No Known Allergies Allergy Verified 05/05/23 20:01 Review of Systems ROS Statement: Those systems with pertinent positive or pertinent negative responses have been documented in the HPI. ROS Other: All systems not noted in ROS Statement are negative. 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 Recent stomach ulcer. History of Any Multi-Drug Resistant Organisms: None Reported Past Surgical History: Section, Cholecystectomy, Hysterectomy, Tubal Ligation Additional Past Surgical History / Comment(s): D & C, x3 c-sections Past Anesthesia/Blood Transfusion Reactions: No Reported Reaction, Family History of Problems w/ Anesthesia Additional Past Anesthesia/Blood Transfusion Reaction / Comment(s): states "takes alot of medication to be put under for mother." No problems with prior blood transfusion. Past Psychological History: Anxiety, Depression, Panic Disorder, PTSD Smoking Status: Current every day smoker Past Alcohol Use History: None Reported Past Drug Use History: Marijuana - Past Family History Mother Family Medical History: Diabetes Mellitus, Hypertension Father Additional Family Medical History / Comment(s): had physical and mental disabilities at age 46. Father Brother(s) Family Medical History: Diabetes Mellitus, Hypertension General Exam - General Exam Comments Initial Comments: General: Alert, in no acute distress Head: atraumatic normocephalic. Eyes PERRL, EOMI intact, mucous membranes moist Respiratory: Lungs clear to auscultation bilaterally Cardiovascular: Heart rate regular rate and rhythm Abdominal: Soft without guarding or rebound, bilateral lower quadrant tenderness Extremities: Normal inspection with full range of motion and normal capillary refill Neuroogic: alert and oriented 3, CN II-XII intact, able to ambulate with steady gait Skin: warm dry and intact with normal color Limitations: no limitations Course Vital Signs 05/05/23 05/05/23 05/05/23 15:41 16:47 17:55 Temperature 98.2 F 98.1 F 98.1 F Pulse Rate 61 50 L 62 Respiratory 18 18 20 Rate Blood Pressure 105/62 98/74 98/76 O2 Sat by Pulse 100 100 100 Oximetry 05/05/23 05/05/23 18:35 21:37 Temperature Pulse Rate 64 78 Respiratory 18 18 Rate Blood Pressure 98/68 101/68 O2 Sat by Pulse 100 98 Oximetry Medical Decision Making - Medical Decision Making Was pt. sent in by a medical professional or institution (, PA, EQUIPMENT MAINTENANCE SUPERVISOR, urgent care, hospital, or fdc...) When possible be specific @ -[No] Did you speak to anyone other than the patient for history (EMS, parent, family, police, friend...)? What history was obtained from this source @ -[No] Did you review nursing and triage notes (agree or disagree)? Why? @ -[I reviewed and agree with nursing and triage notes] Were old charts reviewed (outside hosp., previous admission, EMS record, old EKG, old radiological studies, urgent care reports/EKG's, fdc records)? Report findings @ -[No old charts were reviewed] Differential Diagnosis (chest pain, altered mental status, abdominal pain women, abdominal pain men, vaginal bleeding, weakness, fever, dyspnea, syncope, headache, dizziness, GI bleed, back pain, seizure, CVA, palpatations, mental health, musculoskeletal)? @ -[not applicable] EKG interpreted by me (3pts min.). @ -[As above] X-rays interpreted by me (1pt min.). @ -[None done] CT interpreted by me (1pt min.). @ -[None done] U/S interpreted by me (1pt. min.). @ -No evidence of torsion, with small cyst on the left side What testing was considered but not performed or refused? (CT, X-rays, U/S, labs)? Why? @ -[None] What meds were considered but not given or refused? Why? @ -[None] Did you discuss the management of the patient with other professionals ( professionals i.e. , PA, EQUIPMENT MAINTENANCE SUPERVISOR, lab, RT, psych nurse, social work nurse, cannery tender engineer, teacher, chief digital officer, counseling case manager)? Give summary @ -[No] Was smoking cessation discussed for >3mins.? @ -[No] Was critical care preformed (if so, how long)? @ -[No] Were there social determinants of health that impacted care today? How? (Homelessness, low income, unemployed, alcoholism, drug addiction, t ransportation, low edu. Level, literacy, decrease access to med. care, group home, rehab)? @ -[No] Was there de-escalation of care discussed even if they declined (Discuss DNR or withdrawal of care, Hospice)? DNR status @ -[No] What co-morbidities impacted this encounter? (DM, HTN, Smoking, COPD, CAD, Cancer, CVA, ARF, Chemo, Hep., AIDS, mental health diagnosis, sleep apnea, morbid obesity)? @ -[None] Was patient admitted / discharged? Hospital course, mention meds given and route, prescriptions, significant lab abnormalities, going to OR and other pertinent info. @ -Discharged. This is a pleasant 38-year-old female with no significant past medical history who presents the emergency department with lower abdominal pain. Patient had a thorough history and physical exam performed on the emergency department. Patient had a thorough history and physical exam performed on the ED. Physical exam reveals bilateral tenderness no rebound or guarding. Abdomen is soft. Patient had lab work and imaging performed which was essentially unremarkable. Patient was given Zofran, Tylenol, morphine, 1 L of IV fluids for symptomatic relief on the ED. I discu ssed the results in detail with the patient verbalized understanding were addressed. Patient will be discharged home in stable condition with recommended close follow-up with PCP and DIRECTOR OF LAND ACQUISITION in 1-2 days. Return precautions were discussed. Patient discharged in stable condition. Case discussed with AMY Paz who agrees with plan of care Undiagnosed new problem with uncertain prognosis? @ -[No] Drug Therapy requiring intensive monitoring for toxicity (Heparin, Nitro, Insulin, Cardizem)? @ -[No] Were any procedures done? @ -[No] Diagnosis/symptom? @ -Abdominal Pain Acute, or Chronic, or Acute on Chronic? @ -Acute Uncomplicated (without systemic symptoms) or Complicated (systemic symptoms)? @ -Uncomplicated Side effects of treatment? @ -[No] Exacerbation, Progression, or Severe Exacerbation? @ -[No] Poses a threat to life or bodily function? How? (Chest pain, [place], [place], pneumonia, PE, COPD, DKA, ARF, appy, cholecystitis, CVA, Diverticulitis, Homicidal, Suic idal, threat to staff... and all critical care pts) @ -Low likelihood - Lab Data Result diagrams: 05/05/23 16:40 05/05/23 16:40 Lab Results 05/05/23 05/05/23 05/05/23 Range/Units 16:40 16:40 16:40 WBC 9.7 (3.8-10.6) k/uL RBC 4.40 (3.80-5.40) m/uL Hgb 13.7 (11.4-16.0) gm/dL Hct 41.5 (34.0-46.0) % MCV 94.3 (80.0-100.0) fL MCH 31.2 (25.0-35.0) pg MCHC 33.0 (31.0-37.0) g/dL RDW 12.1 (11.5-15.5) % Plt Count 236 (150-450) k/uL MPV 7.3 Neutrophils % 73 % Lymphocytes % 20 % Monocytes % 5 % Eosinophils % 1 % Basophils % 0 % Neutrophils # 7.1 (1.3-7.7) k/uL Lymphocytes # 1.9 (1.0-4.8) k/uL Monocytes # 0.5 (0-1.0) k/uL Eosinophils # 0.1 (0-0.7) k/uL Basophils # 0.0 (0-0.2) k/uL Sodium 139 (137-145) mmol/L Potassium 4.1 (3.5-5.1) mmol/L Chloride 107 (98-107) mmol/L Carbon Dioxide 26 (22-30) mmol/L Anion Gap 6 mmol/L BUN 7 (7-17) mg/dL Creatinine 0.70 (0.52-1.04) mg/dL Est GFR (CKD-EPI)AfAm >90 (>60 ml/min/1.73 sqM) Est GFR (CKD-EPI)NonAf >90 (>60 ml/min/1.73 sqM) Glucose 78 (74-99) mg/dL Calcium 9.1 (8.4-10.2) mg/dL Total Bilirubin 0.5 (0.2-1.3) mg/dL AST 24 (14-36) U/L ALT 21 (4-34) U/L Alkaline Phosphatase 57 (38-126) U/L Total Protein 6.5 (6.3-8.2) g/dL Albumin 4.1 (3.5-5.0) g/dL Prolactin 4.200 (2.800-29.200) ng/mL HCG, Quant <2.4 mIU/mL Urine Color Yellow Urine Appearance Clear (Clear) Urine pH 7.0 (5.0-8.0) Ur Specific [place] 1.004 (1.001-1.035) Urine Protein Negative (Negative) Urine Glucose (UA) Negative (Negative) Urine Ketones Negative (Negative) Urine Blood Negative (Negative) Urine Nitrite Negative (Negative) Urine Bilirubin Negative (Negative) Urine Urobilinogen <2.0 (<2.0) mg/dL Ur Leukocyte Esterase Negative (Negative) Disposition Clinical Impression: Abdominal pain Disposition: HOME SELF-CARE Condition: Stable Instructions (If sedation given, give patient instructions): Abdominal Pain (ED) Additional Instructions: PLease return to the nearest emergency department if symptoms worsen or persist. Prescriptions: Lidocaine 5% Patch [Lidoderm 5% Patch] 1 patch TOPICAL DAILY #7 patch Ibuprofen [Motrin] 800 mg PO Q8HR PRN #30 tab PRN Reason: Pain Is patient prescribed a controlled substance at d/c from ED?: No Referrals: Colton Yeung MD [Primary Care Provider] - 1-2 days Time of Disposition: 20:57
[2023-05-05] MEDS ORDERED: SODIUM CHLORIDE 0.9% 1,000 ML IV ONE (17:01)
[2023-05-05] MEDS ORDERED: ONDANSETRON 4 MG/2 ML VIAL IVP STA (17:01)
[2023-05-05] MEDS ORDERED: ACETAMINOPHEN TAB 325 MG TAB PO STA (17:01)
[2023-05-05 17:09] LABS: ALT 21 U/L (4-34); AST 24 U/L (14-36); African American GFR (CKD) >90 (>60 ml/min/1.73 sqM); Albumin 4.1 g/dL (3.5-5.0); Alkaline Phosphatase 57 U/L (38-126); Anion Gap 6 mmol/L; Blood Urea Nitrogen 7 mg/dL (7-17); Calcium 9.1 mg/dL (8.4-10.2); Carbon Dioxide 26 mmol/L (22-30); Chloride 107 mmol/L (98-107); Glucose 78 mg/dL (74-99); Non-African American GFR(CKD) >90 (>60 ml/min/1.73 sqM); Potassium 4.1 mmol/L (3.5-5.1); Sodium 139 mmol/L (137-145); Total Bilirubin 0.5 mg/dL (0.2-1.3); Total Protein 6.5 g/dL (6.3-8.2)
[2023-05-05 17:25] LABS: HCG,Quantitative Serum <2.4 mIU/mL
--- NOTE | 2023-05-05 18:31 | US ---
EXAMINATION TYPE: US transvaginal DATE OF EXAM: 05/05/2023 COMPARISON: CLINICAL INDICATION: Female, 38 years old with history of LLQ abdominal pain; UT removed. TECHNIQUE: Transvaginal (TV). Portable EC patient Date of LMP: Unknown EXAM MEASUREMENTS: Right Ovary: 2.1 x 1.3 x 1.3 cm Left Ovary: 3.3 x 1.6 x 2.6 cm 1. Uterus: Surgically absent 2. Endometrium: Surgically absent 3. Right Ovary: Dominant follicle= 1.6 cm 4. Left Ovary: Simple cyst = 2.7 x 3.0 x 2.4 cm Spectral, color and waveform doppler imaging shows good arterial and venous flow within the ovaries ; there is no evidence for ovarian torsion. 5. Bilateral Adnexa: no free fluid 6. Posterior cul-de-sac: no free fluid IMPRESSION: 1. No evidence for acute process. 2. The ovaries demonstrate appropriate arterial and venous waveforms.
[2023-05-05 18:38] VITALS: RESP 18
[2023-05-05] MEDS ORDERED: MORPHINE SULFATE 2 MG/ML SYRINGE IVP ONE (18:48)
[2023-05-05] MEDS ORDERED: ONDANSETRON ODT 4 MG TAB PO STA (21:11)
[2023-05-05 21:38] VITALS: BP 101/68; PULSE 78
== END 2023-05-05 21:38 | disposition home or self-care (01) ==
LOC: EC 15:38
DX: R10.32 Left lower quadrant pain (principal); J44.9 Chronic obstructive pulmonary disease, unspecified; I25.10 Atherosclerotic heart disease of native coronary artery without angina pectoris; F17.200 Nicotine dependence, unspecified, uncomplicated; F12.90 Cannabis use, unspecified, uncomplicated; Z79.82 Long term (current) use of aspirin; Z79.899 Other long term (current) drug therapy; Z90.49 Acquired absence of other specified parts of digestive tract
CPT/HCPCS: 36415; 80053; 85025; 81003; 84702; 84146; 93975; 76830; 99284; 96374; 96375; 96361; J2405; J2270

== ENCOUNTER 2023-12-11 06:14 | Day surgery (SDC) | payer BC, OTHER ==
[2023-12-11] MEDS: SODIUM CHLORIDE 0.9% 1,000 ML IV SCH (06:46)
[2023-12-11 06:51] VITALS: BP 99/55; PULSE 107; RESP 18; TEMP 98.6
[2023-12-11 07:48] LABS: Glucose,Whole Blood 97 mg/dL (70-110)
--- NOTE | 2023-12-11 14:34 | P.EPPROC ---
- EP Procedure Note Electrophysiology Procedure Note: Diagnosis Recurrent syncope Twelve-lead EKG shows sinus mechanism, normal CT interval narrow QRS normal ST segments Tilt table test per protocol Baseline blood pressure 94/58 mmHg baseline heart rate 61 beats a minute Patient was tilted upright in angle of 70 degrees per protocol No change in her blood pressure. Her blood pressure remained in the mid 90s Increase in heart rate to around 95 beats a minute She felt her heart was pounding She felt lightheaded and shaky When she was laid supine her heart rate came down to 64 beats a minute Impression orthostatic intolerance, no evidence for secondary neurocardiogenic phenomena Normal twelve-lead EKG
== END 2023-12-11 08:35 | disposition home or self-care (01) ==
LOC: CATHEP 06:14
PROVIDERS: ATTEND Internal Medicine Clinical Cardiac Electrophysiology
DX: I95.1 Orthostatic hypotension (principal); F17.210 Nicotine dependence, cigarettes, uncomplicated; Z82.49 Family history of ischemic heart disease and other diseases of the circulatory system; Z88.8 Allergy status to other drugs, medicaments and biological substances
CPT/HCPCS: 93660

== ENCOUNTER → 2024-02-28 | Outpatient (CLI) | payer BC, OTHER | END | disposition home or self-care (01) | LOC: LABWHC1 12:24 | PROVIDERS: ATTEND Otolaryngology | DX: R42 Dizziness and giddiness (principal) | CPT/HCPCS: 36415; 86038; 86618 ==

== ENCOUNTER 2024-03-27 23:46 | Emergency (ER) | payer BC, OTHER ==
[2024-03-27 23:52] VITALS: TEMP 98.2
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
[2024-03-28 01:30] LABS: Appearance,Urine Clear (Clear); Bilirubin,Urine Negative (Negative); Blood,Urine Negative (Negative); Color,Urine Colorless; Glucose,Urine (UA) Negative (Negative); Ketones,Urine Negative (Negative); Leukocyte Esterase,Urine Negative (Negative); Nitrite,Urine Negative (Negative); PH, Urine 6.5 (5.0-8.0); Protein,Urine Negative (Negative); Specific Gravity,Urine 1.007 (1.001-1.035); Urobilinogen,Urine <2.0 mg/dL (<2.0)
[2024-03-28 01:36] LABS: Basophils % (A) 0 %; Eosinophils # (A) 0.2 k/uL (0-0.7); Eosinophils % (A) 2 %; HCT 37.4 % (34.0-46.0); HGB 12.5 gm/dL (11.4-16.0); Lymphocytes # (A) 1.9 k/uL (1.0-4.8); Lymphocytes % (A) 23 %; MCH 31.2 pg (25.0-35.0); MCHC 33.5 g/dL (31.0-37.0); MCV 93.3 fL (80.0-100.0); Mean Platelet Volume 7.6; Monocytes # (A) 0.6 k/uL (0-1.0); Monocytes % (A) 7 %; Neutrophils # (A) 5.7 k/uL (1.3-7.7); Neutrophils % (A) 67 %; Platelet Count 262 k/uL (150-450); RBC 4.01 m/uL (3.80-5.40); RDW 12.5 % (11.5-15.5); WBC 8.6 k/uL (3.8-10.6)
[2024-03-28 02:04] LABS: ALT 14 U/L (4-34); AST 25 U/L (14-36); African American GFR (CKD) >90 (>60 ml/min/1.73 sqM); Albumin 4.4 g/dL (3.5-5.0); Alkaline Phosphatase 59 U/L (38-126); Anion Gap 7 mmol/L; Blood Urea Nitrogen 10 mg/dL (7-17); Calcium 8.9 mg/dL (8.4-10.2); Carbon Dioxide 21 mmol/L (22-30); Chloride 107 mmol/L (98-107); Glucose 101 mg/dL (74-99); Lipase 127 U/L (23-300); Non-African American GFR(CKD) >90 (>60 ml/min/1.73 sqM); Potassium 3.9 mmol/L (3.5-5.1); Sodium 135 mmol/L (137-145); Total Bilirubin 0.5 mg/dL (0.2-1.3); Total Protein 6.5 g/dL (6.3-8.2)
[2024-03-28] MEDS: ONDANSETRON 4 MG/2 ML VIAL IVP STA (02:12)
[2024-03-28] MEDS: SODIUM CHLORIDE 0.9% 1,000 ML IV ONE (02:13)
[2024-03-28 03:38] VITALS: BP 107/81; PULSE 69; RESP 17
== END 2024-03-28 03:37 | disposition home or self-care (01) ==
LOC: EC 23:46
DX: K52.9 Noninfective gastroenteritis and colitis, unspecified (principal); F17.200 Nicotine dependence, unspecified, uncomplicated
CPT/HCPCS: 36415; 80053; 83605; 83690; 85025; 81003; 99284; 96374; J2405

== ENCOUNTER 2024-04-16 09:28 | Emergency (ER) | payer BC, OTHER ==
[2024-04-16] MEDS: predniSONE 20 MG TAB PO STA (10:17)
[2024-04-16] MEDS: KETOROLAC 15 MG/ML 1 ML VIAL IM STA (10:18)
[2024-04-16] MEDS: LIDOCAINE 4% PATCH TOPICAL ONE (10:20)
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
--- NOTE | 2024-04-16 10:35 | XR ---
EXAMINATION TYPE: XR chest 2V DATE OF EXAM: 04/16/2024 COMPARISON: 07/04/2018 TECHNIQUE: PA and lateral views submitted. HISTORY: Cough FINDINGS: The lungs are clear and there is no pneumothorax, pleural effusion, or focal pneumonia. Heart size normal and no overt failure. Osseous structures intact. Hyperinflation correlate for COPD. IMPRESSION: 1. No acute process.
[2024-04-16] MEDS: IPRATROPIUM-ALBUTEROL 3 ML NEB INHALATION STA (11:03)
[2024-04-16] MEDS: HYDROcodone/APAP 5-325MG 1 EACH TAB PO STA (11:38)
[2024-04-16] MEDS: AZITHROMYCIN 500 MG TAB PO STA (11:39)
[2024-04-16 11:46] VITALS: BP 105/74; PULSE 83; RESP 20; TEMP 98
== END 2024-04-16 11:46 | disposition home or self-care (01) ==
LOC: EC 09:28
DX: S20.211A Contusion of right front wall of thorax, initial encounter (principal); J44.89 Other specified chronic obstructive pulmonary disease; F17.200 Nicotine dependence, unspecified, uncomplicated; X58.XXXA Exposure to other specified factors, initial encounter
CPT/HCPCS: 87636; 71046; 99285; 96372; J1885

== ENCOUNTER 2025-04-24 14:20 | Emergency (ER) | payer OTHER ==
[2025-04-24 14:38] VITALS: RESP 20
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
[2025-04-24] MEDS: SODIUM CHLORIDE 0.9% 1,000 ML IV STA (15:42)
[2025-04-24 15:59] LABS: Basophils # (A) 0.03 10*3/uL (0.00-0.10); Basophils % (A) 0.2 %; Eosinophils # (A) 0.02 10*3/uL (0.04-0.35); Eosinophils % (A) 0.1 %; HCT 40.3 % (37.2-46.3); HGB 14.2 g/dL (12.0-15.0); Lymphocytes # (A) 1.49 10*3/uL (0.90-5.00); Lymphocytes % (A) 10.9 %; MCH 31.3 pg (27.0-32.0); MCHC 35.2 g/dL (32.0-37.0); MCV 89.0 fL (80.0-97.0); Monocytes # (A) 0.64 10*3/uL (0.20-1.00); Monocytes % (A) 4.7 %; Neutrophils # (A) 11.42 10*3/uL (1.80-7.70); Neutrophils % (A) 83.8 %; Platelet Count 292 10*3/uL (140-440); RBC 4.53 10*6/uL (4.10-5.20); RDW 12.0 % (11.5-14.5); WBC 13.64 10*3/uL (4.50-10.00)
[2025-04-24] MEDS: ONDANSETRON 4 MG/2 ML VIAL IVP STA (16:01)
[2025-04-24] MEDS: KETOROLAC 15 MG/ML 1 ML VIAL IVP STA (16:02)
[2025-04-24 16:14] LABS: ALT 13 U/L (4-34); AST 21 U/L (14-36); African American GFR (CKD) >90 (>60 ml/min/1.73 sqM); Albumin 4.6 g/dL (3.5-5.0); Alkaline Phosphatase 85 U/L (38-126); Anion Gap 9 mmol/L; Bilirubin,Urine Negative (Negative); Blood Urea Nitrogen 5 mg/dL (7-17); Blood,Urine Small (Negative); Calcium 10.0 mg/dL (8.4-10.2); Carbon Dioxide 23 mmol/L (22-30); Chloride 107 mmol/L (98-107); Color,Urine Colorless; Glucose 96 mg/dL (74-99); Glucose,Urine (UA) Negative (Negative); Ketones,Urine Negative (Negative); Leukocyte Esterase,Urine Large (Negative); Lipase 104 U/L (23-300); Nitrite,Urine Negative (Negative); Non-African American GFR(CKD) >90 (>60 ml/min/1.73 sqM); PH, Urine 7.0 (5.0-8.0); Potassium 4.0 mmol/L (3.5-5.1); Protein,Urine Negative (Negative); RBC,Urine 1 /hpf (0-5); Sodium 139 mmol/L (137-145); Specific Gravity,Urine 1.004 (1.001-1.035); Squamous Epithelial Cell,Urine <1 /hpf (0-4); Total Protein 7.0 g/dL (6.3-8.2); Urobilinogen,Urine <2.0 mg/dL (<2.0); WBC,Urine 31 /hpf (0-5)
--- NOTE | 2025-04-24 16:33 | CT ---
EXAMINATION TYPE: CT abdomen pelvis w con DATE OF EXAM: 04/24/2025 COMPARISON: 11/06/2019 CLINICAL INDICATION: Female, 40 years old with history of abdominal pain, hematuria; PHH, Abd pain. H ematuria. TECHNIQUE: Performed without Oral Contrast and with IV Contrast, patient injected with 100 ml mL of Isovue 300. CT DLP: 745.[address] CTDI: mGy Automated exposure control for dose reduction was used. FINDINGS: The lung bases are clear. There is surgical absence of the gallbladder. There is no biliary ductal dilatation. There is no focal mass or organomegaly involving the liver, pancreas, spleen or adrenal glands. There is no solid renal mass or hydronephrosis and there is homogeneous contrast enhancement of the r enal parenchyma. The caliber the abdominal aorta is normal is no retroperitoneal adenopathy or hemorr adonay. The bowel loops are normal in caliber and there is no evidence of dilatation or obstruction. No infla mmatory changes are identified in the bowel wall or mesentery. There is no free intraperitoneal air or fluid. No pelvic mass, free fluid, abscess or adenopathy. There is surgical absence of the uterus. The osseous structures and soft tissues are intact. Moderate to marked degenerative disc disease at t he L5-S1 level. IMPRESSION: No acute changes within the abdomen or pelvis. [facility], Workstation: [id number] 04/24/2025 4:31 PM
[2025-04-24] MEDS: cefTRIAXone IN SWFI 1,000 MG/10 ML SYRINGE IVP STA (17:58)
[2025-04-24 18:03] VITALS: BP 111/83; PULSE 76; TEMP 98.4
[2025-04-24] MEDS: ONDANSETRON 4 MG ODT STARTER PACK 2 TAB BTL PO STA (18:05)
[2025-04-25 12:54] LABS: C. trachomatis,PCR Negative (Negative); N. gonorrhoeae,PCR Negative (Negative)
== END 2025-04-24 18:08 | disposition home or self-care (01) ==
LOC: EC 14:20
DX: N39.0 Urinary tract infection, site not specified (principal); Z11.3 Encounter for screening for infections with a predominantly sexual mode of transmission; F17.200 Nicotine dependence, unspecified, uncomplicated
CPT/HCPCS: 36415; 80053; 83605; 83690; 85025; 81001; 87491; 87591; 87086; 87077; 87186; 74177; 99284; 96374; 96375; 96361; J2405; J0696; J1885; S0119; Q9967